=== PATIENT | female | born 1940 | race African-American/Black ===

== ENCOUNTER 2017-10-07 08:48 | Inpatient (IN) | payer OTHER ==
[2017-10-07] VITALS (8 sets, daily range): BP systolic 123–161; BP diastolic 60–98; PULSE 98–120; TEMP 98.6; Ht 170.2 cm; Wt 93.7 kg
[~2017-10-07] VITALS: Ht 170.2 cm; Wt 93.7 kg
[~2017-10-07 08:48] MED LIST: AMLO-147 PO; ASPI-650 PO; EPOE10006 IJ; FOLI-49 PO; HUM100IN2 SQ; LABE100T3 PO; METO10TA92 PO; NPH,100V10 SC; OLME20TA20 PO
[2017-10-07] MEDS ORDERED: IPRATROPIUM (NEB) 0.5 MG/2.5 ML AMP NEB STA (08:49)
[2017-10-07] MEDS ORDERED: ALBUTEROL 0.083% (NEB) 2.5 MG/3 ML AMP NEB STA (08:49)
[2017-10-07] MEDS ORDERED: ONDANSETRON 4 MG INJ IV STA ×2 (09:30→15:22)
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
[2017-10-07 10:07] LABS: BASOPHILS % 0.3 % (0.0-2.0); EOSINOPHILS # 0.2 10^3/ul (0.0-0.5); EOSINOPHILS % 2.1 % (0.0-7.0); HEMATOCRIT 35.2 % (37.0-47.0); HEMOGLOBIN 11.2 g/dl (12.0-16.0); LYMPHOCYTES # 0.8 10^3/ul (0.8-2.9); LYMPHOCYTES % 7.3 % (15.0-51.0); MEAN CORPUSCULAR HEMOGLOBIN 28.4 pg (29.0-33.0); MEAN CORPUSCULAR HGB CONC 31.8 g/dl (32.0-37.0); MEAN CORPUSCULAR VOLUME 89.1 fl (82.0-101.0); MEAN PLATELET VOLUME 10.3 fl (7.4-10.4); MONOCYTE # 0.8 10^3/ul (0.3-0.9); MONOCYTES % 7.3 % (0.0-11.0); NEUTROPHIL # 8.8 10^3/ul (1.6-7.5); NEUTROPHILS % 82.8 % (39.0-77.0); PLATELET COUNT 238 10^3/UL (140-415); RED BLOOD COUNT 3.95 10^6/ul (4.20-5.40); RED CELL DISTRIBUTION WIDTH 15.5 % (11.5-14.5); WHITE BLOOD COUNT 10.6 10^3/ul (4.8-10.8)
--- NOTE | 2017-10-07 10:23 | CONS ---
Date/Time of Note Date/Time of Note DATE: 10/07/17 TIME: 10:14 Assessment/Plan Assessment/Plan Chief Complaint/Hosp Course Complete heart block Renal failure on dialysis Hypertension Abnormal EKG History of valvular heart disease Recommendations: Electrodes are being checked stat. If potassium is elevated needs to be corrected immediately. Discussed with Dr. Porter already who stated the patient has missed her dialysis yesterday. If no reversible causes found. Patient would benefit from permanent pacemaker. 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 Discussed with him. He will take over the case from now on. I will sign off thank you Problems: Consultation Date/Type/Reason Admit Date/Time Date of Consultation: Oct 07, 2017 Type of Consultation: card Reason for Consultation CHB Referring Provider: JAMEEL FLEMING of Present Illness CC: N/A/ABD PAIN HPI: Thank you for his referral. History was informed the patient on discussion with patient physical education instructor Dr. Porter. And also finally from discussion with patient's metal shaping machine operator. This is a pleasant 77-year-old -[place] female with history of renal failure on dialysis who underwent coronary angiogram yesterday as noted hospital. Patient came today because of nausea vomiting abdominal pain. EKG was done in the emergency room which was shown to me because of a concerning EKG in the emergency room. EKG was personally reviewed which showed complete heart block and/A-V dissociation. Heart is also around 40s. She denies any syncope now but she has had syncope in the past. She does complain of feeling of weakness and shortness of breath. Because of wall EKG was kindly asked to evaluate see the patient emergently. Past medical history: Hypertension renal failure on dialysis. History of valvular disorder. Social history does not smoke or drink. Medication was reviewed. Allergies to benazepril and lozenges reportedly. Family history no early coronary artery disease. Exam/Review of Systems Vital Signs Vitals Vital Signs Date Time Temp Pulse Resp B/P Pulse Ox O2 Delivery O2 Flow Rate FiO2 10/07/17 08:56 48 16 96 21 10/07/17 08:54 97.9 161/69 Exam General: OBESE HEENT: NC/AT. pupils are equal. round. NECK: NO JVD. no stridor. CV:NEREYDA.. systolic murmur; no gallop or rubs. PULM: no wheezing or rhonchi. GI: SOFT, NT, ND, no rebound or guarding Extremity: B/L LE edema. no clubbing. neuro: awake and alert, OX3. Psych: calm and pleasant rectal: deferred ECG REVIEWED NSR complete heart block/A-V dissociation. Results Result Diagram: 10/07/1715 Results 24 hrs Laboratory Tests Test 10/07/17 09:15 White Blood Count 10.6 Red Blood Count 3.95 L Hemoglobin 11.2 L Hematocrit 35.2 L Mean Corpuscular Volume 89.1 Mean Corpuscular Hemoglobin 28.4 L Mean Corpuscular Hemoglobin Concent 31.8 L Red Cell Distribution Width 15.5 H Platelet Count 238 Mean Platelet Volume 10.3 Neutrophils % 82.8 H Lymphocytes % 7.3 L Monocytes % 7.3 Eosinophils % 2.1 Basophils % 0.3 Nucleated Red Blood Cells % 0.0 Neutrophils # 8.8 H Lymphocytes # 0.8 Monocytes # 0.8 Eosinophils # 0.2 Basophils # 0.0 Nucleated Red Blood Cells # 0.0 WING BARCENAS MD Oct 07, 2017 10:23
[2017-10-07] MEDS ORDERED: SEVE800T7 PO (10:27)
[2017-10-07] MEDS ORDERED: ATOR20TA38 PO (10:28)
--- NOTE | 2017-10-07 10:44 | RADRPT ---
PROCEDURE: Chest x-ray CLINICAL INDICATION: Asthma exacerbation TECHNIQUE: Chest single view COMPARISON: 03/09/2014 FINDINGS: There is interval removal of dialysis catheter. Stable mild cardiomegaly seen. There is increased bi lateral perihilar interstitial markings. This may represent mild interstitial edema versus interstit ial pneumonia. No confluent consolidation seen. Costophrenic angles are sharp. Bony thorax is unrema rkable. IMPRESSION: 1. Interval removal of dialysis catheter. 2. Increased bilateral perihilar interstitial markings. This may represent interstitial edema versu s interstitial pneumonia RPTAT: HH .Radhames Alejandre MD, MD Date Time Electronically viewed and signed by .Radhames Alejandre MD, MD on 10/07/2017 10:44 .W/
--- NOTE | 2017-10-07 10:47 | CONS ---
Date/Time of Note Date/Time of Note DATE: 10/07/17 TIME: 10:45 Assessment/Plan Assessment/Plan Chief Complaint/Hosp Course ESRD HTN ARRTHYMIA AVF S/P CATH PUL EDEMA PLAN HD Problems: Consultation Date/Type/Reason Admit Date/Time Initial Consult Date 10/07/17 Type of Consultation: renal Referring Provider: JAMEEL FLEMING 24 HR Interval Summary Constitutional: other (sob+) Exam/Review of Systems Vital Signs Vitals Vital Signs Date Time Temp Pulse Resp B/P Pulse Ox O2 Delivery O2 Flow Rate FiO2 10/07/17 08:56 48 16 96 21 10/07/17 08:54 97.9 161/69 Exam Constitutional: alert, oriented Head: normocephalic Eyes: EOMI, nl conjunctiva Neck: supple Respiratory: clear to auscultation Cardiovascular: regular rate and rhythm Gastrointestinal: bowel sounds (+), soft Extremities: edema (+) Neurological: DIRECTOR AMBULATORY II-XII intact, nl mental status, nl speech, nl strength Results Result Diagram: 10/07/17 0915 Results 24 hrs Laboratory Tests Test 10/07/17 09:15 White Blood Count 10.6 Red Blood Count 3.95 L Hemoglobin 11.2 L Hematocrit 35.2 L Mean Corpuscular Volume 89.1 Mean Corpuscular Hemoglobin 28.4 L Mean Corpuscular Hemoglobin Concent 31.8 L Red Cell Distribution Width 15.5 H Platelet Count 238 Mean Platelet Volume 10.3 Neutrophils % 82.8 H Lymphocytes % 7.3 L Monocytes % 7.3 Eosinophils % 2.1 Basophils % 0.3 Nucleated Red Blood Cells % 0.0 Neutrophils # 8.8 H Lymphocytes # 0.8 Monocytes # 0.8 Eosinophils # 0.2 Basophils # 0.0 Nucleated Red Blood Cells # 0.0 BOO MALONE MD Oct 07, 2017 10:47
[2017-10-07] MEDS ORDERED: ONDANSETRON 4 MG INJ IV PRN (12:30)
[2017-10-07 12:37] LABS: CALCIUM 9.7 mg/dl (8.4-10.2); CREATININE 7.52 mg/dl (0.44-1.00)
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
[2017-10-07 12:43] LABS: POTASSIUM 6.3 mmol/L (3.5-5.1)
[2017-10-07 12:49] LABS: TROPONIN-I 0.04 ng/ml (0.00-0.12)
[2017-10-07] MEDS ORDERED: GLUCOSE GEL 15 GRAM TUBE PO PRN ×2 (13:00)
[2017-10-07] MEDS ORDERED: GLUCOSE GEL 15 GRAM TUBE BUCCAL PRN (13:00)
[2017-10-07] MEDS ORDERED: GLUCAGON 1 MG INJ IM PRN (13:00)
[2017-10-07] MEDS ORDERED: DEXTROSE 50% 50 ML SYRINGE IV PRN ×2 (13:00)
--- NOTE | 2017-10-07 13:03 | CONS ---
Date/Time of Note Date/Time of Note DATE: 10/07/17 TIME: 12:57 Assessment/Plan Assessment/Plan Additional Assessment/Plan Chest x-ray was reviewed from today which is showing mild pulmonary vascular congestion. EKG showing complete heart block. However EKG rhythm strip currently is showing second-degree heart block. Assessment and recommendations; 1. Patient admitted with shortness of breath due to mild pulmonary vascular congestion as well as heart block which is likely on the basis of high potassium level. Patient having missed her hemodialysis session yesterday. 2. Currently no sign of any infective process. Patient to be dialyzed shortly. Cardiology consultation appreciated. If heart block persists post correction of hyperkalemia, patient will need to have a pacemaker placed. Consultation Date/Type/Reason Admit Date/Time Date of Consultation: Oct 07, 2017 Type of Consultation: Pulmonary Reason for Consultation Pulmonary consultation requested for evaluation of shortness of breath. History of presenting illness; patient is a pleasant 77-year-old lady who came into the emergency room with a few days history of shortness of breath , the patient apparently has missed hemodialysis yesterday. Upon further evaluation patient was found to be in complete heart block, stat serum chemistry was done which is showing hyperkalemia with potassium of 6.3. By the time I saw the patient in ER, the patient is feeling much better and according to her shortness of breath is now completely resolved. Patient denies any palpitation any syncope any chest pain, denies any fever or chills. Patient did have an episode of nausea earlier. Past medical history; 1. Patient with history of chronic renal failure on hemodialysis. 2. History of chronic anemia. 3. History of valvular heart disease. Medications; reviewed. Allergies; or to BAMBI inhibitor. Next Social history; patient is a very scant smoker. Most of alcohol or drug abuse. Family history; patient is single she has 6 children. Various family members have heart disease, diabetes in the family. Occupation history; noncontributory. Review systems; denies any headache, visual changes, sinus symptoms. Denies any seizures. Any chest pain. Shortness of breath has resolved. Denies any coughing, wheezing, sputum production. Denies any further nausea or vomiting. Denies any abdominal pain. Any melena or hematochezia. Denies any edema orthopnea. General exam; elderly woman, awake alert, currently in no distress. Social History Alcohol Use: none Smoking Status: Former smoker Drug Use: none Exam/Review of Systems Vital Signs Vitals Vital Signs Date Time Temp Pulse Resp B/P Pulse Ox O2 Delivery O2 Flow Rate FiO2 10/07/17 08:56 48 16 96 21 10/07/17 08:54 97.9 161/69 Exam HEENT exam; supple neck, positive JVD. No lymphadenopathy. Midline trachea. No thyromegaly. Patient upper jaw is edentulous. Has bilateral intraocular lens implants. No neck masses. Chest exam; clear to auscultation. S1-S2 audible, no murmurs. Regular rhythm. Abdomen exam; soft, nontender. No organomegaly. Bowel sounds audible. Extremity exam; no edema. Pulses 1+ bilaterally. REGIONAL TELECOMMUNICATIONS SPECIALIST exam; no focal deficit. Results Result Diagram: 10/07/1791410/07/1715 Results 24 hrs Laboratory Tests Test 10/07/17 09:15 10/07/17 11:36 White Blood Count 10.6 Red Blood Count 3.95 L Hemoglobin 11.2 L Hematocrit 35.2 L Mean Corpuscular Volume 89.1 Mean Corpuscular Hemoglobin 28.4 L Mean Corpuscular Hemoglobin Concent 31.8 L Red Cell Distribution Width 15.5 H Platelet Count 238 Mean Platelet Volume 10.3 Neutrophils % 82.8 H Lymphocytes % 7.3 L Monocytes % 7.3 Eosinophils % 2.1 Basophils % 0.3 Nucleated Red Blood Cells % 0.0 Neutrophils # 8.8 H Lymphocytes # 0.8 Monocytes # 0.8 Eosinophils # 0.2 Basophils # 0.0 Nucleated Red Blood Cells # 0.0 Sodium Level 139 Potassium Level 6.3 *H Chloride Level 101 Carbon Dioxide Level 23 Anion Gap 21 H Blood Urea Nitrogen 40 H Creatinine 7.52 H Glucose Level 124 Calcium Level 9.7 Troponin I 0.040 Magnesium Level 1.9 Digoxin Level < 0.4 L Medications Medications Current Medications Ondansetron HCl (Zofran Inj) 4 mg Q6H PRN IV NAUSEA AND/OR VOMITING; Start 10/07/17 at 12:30 Pantoprazole (Protonix Iv) 40 mg DAILY IV ; Start 10/08/17 at 09:00 Diagnostic Test (Pha) (Accu-Chek) 1 02 XX ; Start 10/08/17 at 02:00 Insulin Aspart NOVOLOG *MILD* ALGORI... Q4 SC ; Start 10/07/17 at 17:00 Dextrose/Sodium Chloride (D5-1/2ns) 1,000 ml @ 40 mls/hr Q24H IV ; Start at 16:00 Miscellaneous Information 1 ea NOTE XX ; Start 10/07/17 at 13:00 Glucose (Glutose) 15 gm Q15M PRN PO DECREASED GLUCOSE; Start 10/07/17 at 13:00 Glucose (Glutose) 22.5 gm Q15M PRN PO DECREASED GLUCOSE; Start 10/07/17 at 13: 00 Dextrose (D50w Syringe) 25 ml Q15M PRN IV DECREASED GLUCOSE; Start 10/07/17 at 13:00 Dextrose (D50w Syringe) 50 ml Q15M PRN IV DECREASED GLUCOSE; Start 10/07/17 at 13:00 Glucagon (Glucagen) 1 mg Q15M PRN IM DECREASED GLUCOSE; Start 10/07/17 at 13:00 Glucose (Glutose) 15 gm Q15M PRN BUCCAL DECREASED GLUCOSE; Start 10/07/17 at 13 :00 LIBERTY CRUZ Oct 07, 2017 13:03
--- NOTE | 2017-10-07 13:11 | RADRPT ---
Echocardiogram Report Patient Name: KAVEH VILLANUEVA Gender: Female Date: 1940 Study Date: 07-Oct-2017 Survey Research Teacher: Merle Gabriel RDCS Location: [facility] Ref. Physician: TODD PAGAN Quality: Adequate Procedures: Transthoracic echocardiogram with complete 2D, M-Mode, and doppler examination. Indications: heart block. 2D/M Mode Doppler Measurement Value Normal Ranges Measurement Value Normal Ranges LVIDd 2D 4.6 3.5 - 5.6 cm AMANDA Vmax 0.9 cm2 LVIDs 2D 1.7 2.1 - 4.1 cm AMANDA VTI 0.9 cm2 LVPWd 2D 1.0 0.6 - 1.1 cm AV Mean Oleksandr 2.9 m/sec IVSd 2D 1.1 0.6 - 1.1 cm AV Mean PG 42.5 mmHg AoR Diam 2D 2.1 2.0 - 3.7 cm AV Peak Oleksandr 4.8 m/sec EDV 2D 99.8 cm3 AV Peak PG 91.3 mmHg ESV 2D 4.6 cm3 AV VTI 96.9 cm LA Dimen 2D 3.1 2.3 - 4.0 cm LVOT Mean Oleksandr 1.1 m/sec LVOT Diam 1.9 cm LVOT Mean PG 5.4 mmHg LVOT Peak Oleksandr 1.4 m/sec LVOT Peak PG 8.0 mmHg LVOT VTI 36.8 cm TR Peak Oleksandr 3.2 m/sec TR Peak PG 41.9 mmHg RVSP 50.0 mmHg Findings Left Ventricle: Hyperdynamic left ventricular systolic function. Normal left ventricular cavity size. Mild concentric left ventricular hypertrophy. Ejection fraction is visually estimated at 70 %. Tissue Doppler/Mitral Doppler indices are indeterminate in this study due to the presence of heart block. Right Ventricle: Normal right ventricular size. Normal right ventricular systolic function. Left Atrium: The left atrium is normal in size. Right Atrium: The right atrium is normal in size. Mitral Valve: Mild mitral leaflet calcification. Mild mitral annular calcification. Mild mitral valve regurgitation. Aortic Valve: Severe aortic stenosis. Aortic valve Max velocity 4.78 m/sec. Max PG 91.30 mmHg. Mean PG 42.50 mmHg. Aortic valve area 0.80 cm2. Aortic cusps appear severely calcified. Trace aortic valve regurgitation. Tricuspid Valve: Normal appearance of the tricuspid valve. Right ventricular systolic pressure is consistent with moderate pulmonary hypertension. Estimated peak PA systolic pressure 44 mmHg. There is moderate tricuspid regurgitation. Pulmonic Valve: Pulmonic valve not well visualized. Pericardium: Normal pericardium with no significant pericardial effusion. Aorta: Normal aortic root. IVC: Normal size and normal respiratory collapse consistent with normal right atrial pressure. Conclusions Hyperdynamic left ventricular systolic function. Normal left ventricular cavity size. Mild concentric left ventricular hypertrophy. Ejection fraction is visually estimated at 70 %. Tissue Doppler/Mitral Doppler indices are indeterminate in this study due to the presence of heart block. Normal right ventricular size. Normal right ventricular systolic function. The left atrium is normal in size. Severe aortic stenosis. Aortic valve Max velocity 4.78 m/sec. Max PG 91.30 mmHg. Mean PG 42.50 mmHg. Aortic valve area 0.80 cm2. Aortic cusps appear severely calcified. Trace aortic valve regurgitation. Mild mitral leaflet calcification. Mild mitral annular calcification. Mild mitral valve regurgitation. Normal appearance of the tricuspid valve. Right ventricular systolic pressure is consistent with moderate pulmonary hypertension. Estimated peak PA systolic pressure 44 mmHg. There is moderate tricuspid regurgitation. Normal aortic root. Normal size and normal respiratory collapse consistent with normal right atrial pressure. No Vegetation, masses, or thrombi seen. Electronically Signed By: Damon Figueroa 07-Oct-2017 13:10:35 -0800 Patient Name: KAVEH VILLANUEVA Study Date: 07-Oct-2017 [id number]
--- NOTE | 2017-10-07 14:27 | CONS ---
Date/Time of Note Date/Time of Note DATE: 10/07/17 TIME: 13:02 Assessment/Plan Assessment/Plan Chief Complaint/Hosp Course Impression: Complete heart block: pt is on labetolol with hyperkalemia as well. will hold bb and dialyze patient. if remains in CHB may need PPM. - cont tele in ICU - pacer pads, atropine at bedside - if hypotension progression in symptoms can start dopamine as well, consider temp pacer - hold avn blockers, bp meds - keep npo at [place] Aortic stenosis- moderate on previous echo and cath yesterday. however severe gradient on todays study. possible related to bradycardia, and increased output. will need to reassess when normal rhythm restored CAD- non obstructive on cath yesterday. cont asa, statin. avoid bb at this time. ESRD on iHD- dialysis per dr. malone HTN- holding bp meds given CHB, will restart as needed or when normal rhythm restored. HLD- on statin d/w Dr. Malone. Problems: Consultation Date/Type/Reason Admit Date/Time 10/07/2017 Date of Consultation: Oct 07, 2017 Type of Consultation: Cardiology Reason for Consultation Heart Block Referring Provider: BOO MALONE MD Hx of Present Illness Ms. Shelton is a 77-year-old woman with asthma, history of end-stage renal disease on dialysis. Hypertension diabetes mellitus type 2 as well as aortic stenosis. Patient reported recently she had episode of syncope was seen in clinic and had left heart catheterization yesterday at [facility] as outpatient for evaluation of coronary disease and aortic stenosis. Briefly: Patient tolerated procedure well and was found to have normal right-sided left- sided pressures. At least moderate aortic stenosis, normal cardiac output/ index and moderate nonobstructive coronary disease iFR.was performed in the right coronary artery which was normal. Access was obtained in the right femoral artery and vein and hemostasis was seen and successfully. Patient states she went home and was resting but felt tired. Today she had increased fatigue with shortness of breath and nausea. She was taken to [facility] where she was found to have complete heart block with heart rate in the 40s with stable blood pressure. Laboratory studies showed hyperkalemia 6.3 without significant troponin elevation. She did have mild dizziness with walking but no syncope. No lightheadedness at rest. No PND orthopnea edema. Constitutional: No chills, No diaphoresis, No disoriented, No febrile, No improved, No no complaints, No other, No poor po, No requiring IVF, No requiring O2 Eyes: No discharge, No no complaints, No other, No pain, No redness, No visual change ENT: No bleeding, No congestion, No discharge, No dysphagia, No no complaints, No other, No pain, No sore throat Respiratory: shortness of breath Cardiovascular: no complaints Gastrointestinal: nausea Genitourinary: No bleeding, No discharge, No dysuria, No flank pain, No hematuria, No no complaints, No other Musculoskeletal: No back pain, No bone/joint pain, No neck pain, No no complaints, No other, No restricted range of motion, No swelling Skin: No bruising, No erythema, No laceration, No no complaints, No other, No pruritis, No rash, No skin lesions Neurologic: dizziness, No confusion, No focal-weakness, No headache, No no complaints, No other, No seizure, No syncope Immunologic: No immunodeficiency, No no complaints, No other, No pruritis, No rhinitis, No urticaria Past Medical History Active Problems Aortic stenosis (424.1) (I35.0) Carotid artery stenosis (433.10) (I65.29) Diabetes mellitus, type 2 (250.00) (E11.9) ESRD on dialysis (585.6,V45.11) (N18.6,Z99.2) Coronary Artery Disease Syncope Surgical History History of Cataract Surgery History of Hemodialysis Access Type Arteriovenous Fistula History of Hysterectomy Social History Former smoker (V15.82) (Z87.891) Lifestyle and Disease Management: Smoking: She does not use tobacco. Alcohol: She consumes alcohol. social. Drug Use: She denies drug use. Family History No pertinent family history Exam/Review of Systems Vital Signs Vitals Vital Signs Date Time Temp Pulse Resp B/P Pulse Ox O2 Delivery O2 Flow Rate FiO2 10/07/17 08:56 48 16 96 21 10/07/17 08:54 97.9 161/69 Exam Constitutional: alert, oriented Psych: nl mood/affect, no complaints Head: atraumatic, normocephalic ENMT: nl external ears & nose, nl lips & teeth Neck: non-tender, supple, No jvd Respiratory: clear to auscultation, normal air movement, No congested cough, No crackles/rales Cardiovascular: other (katherine, regualr, nl s1s2 iii/vi edmundo rusb) Gastrointestinal: non-tender, soft Genitourinary - Female: other (R groin with dressing, cd/i. no hematoma/bruit) Extremities: normal pulses, No calf tenderness, No clubbing, No cyanosis, No edema Neurological: BUTTON SPINDLER II-XII intact, nl speech Skin: nl turgor Lymph: nl lymph nodes Results Result Diagram: 10/07/1715 10/07/1715 Results 24 hrs Laboratory Tests Test 10/07/17 09:15 10/07/17 11:36 White Blood Count 10.6 Red Blood Count 3.95 L Hemoglobin 11.2 L Hematocrit 35.2 L Mean Corpuscular Volume 89.1 Mean Corpuscular Hemoglobin 28.4 L Mean Corpuscular Hemoglobin Concent 31.8 L Red Cell Distribution Width 15.5 H Platelet Count 238 Mean Platelet Volume 10.3 Neutrophils % 82.8 H Lymphocytes % 7.3 L Monocytes % 7.3 Eosinophils % 2.1 Basophils % 0.3 Nucleated Red Blood Cells % 0.0 Neutrophils # 8.8 H Lymphocytes # 0.8 Monocytes # 0.8 Eosinophils # 0.2 Basophils # 0.0 Nucleated Red Blood Cells # 0.0 Sodium Level 139 Potassium Level 6.3 *H Chloride Level 101 Carbon Dioxide Level 23 Anion Gap 21 H Blood Urea Nitrogen 40 H Creatinine 7.52 H Glucose Level 124 Calcium Level 9.7 Troponin I 0.040 Magnesium Level 1.9 Digoxin Level < 0.4 L Medications Medications Current Medications Ondansetron HCl (Zofran Inj) 4 mg Q6H PRN IV NAUSEA AND/OR VOMITING; Start 10/07/17 at 12:30 Pantoprazole (Protonix Iv) 40 mg DAILY IV ; Start 10/08/17 at 09:00 Diagnostic Test (Pha) (Accu-Chek) 1 ea 02 XX ; Start 10/08/17 at 02:00 Insulin Aspart NOVOLOG *MILD* ALGORI... Q4 SC ; Start 10/07/17 at 17:00 Dextrose/Sodium Chloride (D5-1/2ns) 1,000 ml @ 40 mls/hr Q24H IV ; Start at 16:00 Miscellaneous Information 1 ea NOTE XX ; Start 10/07/17 at 13:00 Glucose (Glutose) 15 gm Q15M PRN PO DECREASED GLUCOSE; Start 10/07/17 at 13:00 Glucose (Glutose) 22.5 gm Q15M PRN PO DECREASED GLUCOSE; Start 10/07/17 at 13: 00 Dextrose (D50w Syringe) 25 ml Q15M PRN IV DECREASED GLUCOSE; Start 10/07/17 at 13:00 Dextrose (D50w Syringe) 50 ml Q15M PRN IV DECREASED GLUCOSE; Start 10/07/17 at 13:00 Glucagon (Glucagen) 1 mg Q15M PRN IM DECREASED GLUCOSE; Start 10/07/17 at 13:00 Glucose (Glutose) 15 gm Q15M PRN BUCCAL DECREASED GLUCOSE; Start 10/07/17 at 13 :00 Procedures Procedures cxr report reviewed in emr EKrd degree heart block, with escape rhythm CRISTIAN COTTON Oct 07, 2017 13:12
[2017-10-07] MEDS ORDERED: NA BICARBONATE 8.4% 50 ML SYG IV STA (14:34)
[2017-10-07] MEDS ORDERED: NA POLYST SULFON 15 GM/60 ML BTL PO STA (14:34)
[2017-10-07] MEDS ORDERED: CALCIUM GLUCONATE 10% 1 GM in SOD CHLORIDE 0.9% 100 ML IVPB ONE (15:00)
[2017-10-07] MEDS ORDERED: morphine 4 MG/ML VIAL IV STA (15:22)
--- NOTE | 2017-10-07 16:57 | QN ---
Documentation Comment [id number] GARCIA MD Oct 07, 2017 16:57
[2017-10-07] MEDS: INSULIN ASPART [NOVOLOG] 3 ML PEN SC SCH ×2 (17:00→21:00)
[2017-10-07] MEDS ORDERED: NA POLYST SULFON 15 GM/60 ML BTL PO ONE (17:00)
[2017-10-07] MEDS ORDERED: INSULIN ASPART [NOVOLOG] 3 ML PEN SC SCH (18:00)
[2017-10-07] MEDS ORDERED: ACETAMINOPHEN 325 MG TAB PO ONE (18:30)
--- NOTE | 2017-10-07 20:01 | CONS ---
DATE OF ADMISSION: 10/07/2017 DATE OF CONSULTATION: NEPHROLOGY CONSULTATION Thank you, Dr. Damon Figueroa and Dr. Pedro Montejo for kindly asking me to see this patient in consultation. HISTORY OF PRESENT ILLNESS: Patient, Brenda Shelton, is a 77-year-old female well known to me with a history of ESRD and hypertension. The patient has a history of AV fistula in the left upper extremity, history of anemia, history of epistaxis, history of rhinoplasty. The patient has history of AV malformation. Presented with short of breath, noted to have sodium 139, potassium 6.3, BUN 40, creatinine 7.52. Patient's digoxin is 0.4, hematocrit 35.2. The patient had a chest x-ray done in the ER, shows increased bilateral perihilar and interstitial markings, may represent interstitial edema. The patient is going to be admitted for further management. Patient recently had coronary angiogram done at [facility]. As per patient, no intervention was done. PAST MEDICAL HISTORY: As mentioned, diabetes mellitus, hypertension, ESRD, anemia, history of epistaxis, status post angiogram. ALLERGY HISTORY: , BENAZEPRIL. SOCIAL HISTORY: Negative. FAMILY HISTORY: Negative. MEDICATIONS 1. Amlodipine. 2. Aspirin. 3. Lipitor. 4. Epogen. 5. Folic acid. 6. Insulin. 7. Labetalol. 8. Reglan. 9. Benicar. 10. Renvela. REVIEW OF SYSTEMS: HEENT: Unremarkable. RESPIRATORY: Short of breath. Lung congestion. CARDIOVASCULAR: No chest pain or palpitations. ABDOMEN: ____ has some nausea, otherwise unremarkable. No hematemesis, melena. EXTREMITIES: Unremarkable with on and off lower extremity edema. CENTRAL NERVOUS SYSTEM: Unremarkable. PHYSICAL EXAMINATION: GENERAL: The patient is an overweight female, awake, alert. VITAL SIGNS: Pulse of 48, blood pressure 116/59. HEENT: Head is atraumatic, normocephalic. Pupils are equal, reactive to light. No pallor_ conjunctivae or icterus. NECK: Supple. LUNGS: Basilar rales noted. CARDIOVASCULAR: S1, S2 normal. ABDOMEN: Soft, nontender. Bowel sounds positive. No palpable mass or hepatosplenomegaly. EXTREMITIES: No cyanosis, clubbing. Edema positive. CENTRAL NERVOUS SYSTEM: The patient is awake, alert, moving both upper and lower extremities. LABORATORY DATA: As mentioned above. IMPRESSION: 1. Patient has hyperkalemia. 2. Cardiac arrhythmia with possible third-degree heart block per cardiology. 3. End-stage renal disease. 4. Patient has clinical pulmonary edema. 5. Hypertension. 6. Status post coronary angiogram 2 days ago. 7. Diabetes mellitus. 8. Obesity. 9. History of epistaxis. 10. History of dyslipidemia. PLAN: Continue to give this patient renal diet. Hemodialysis will be ordered. In the ER, the patient received dextrose solution. The patient will also be receiving Kayexalate. Other recommendations per cardiology on the case. Thank you doctors for kindly asking me to see this patient in nephrology consultation. Dictated By: BOO MALONE MD BS/NTS Conf#: [id number] DID#: [id number] CC: PEDRO MONTEJO MD; DAMON FIGUEROA MD;*EndCC* MTDD
[2017-10-08] VITALS (17 sets, daily range): BP systolic 123–161; BP diastolic 51–89; PULSE 86–101; RESP 18–23
[2017-10-08] MEDS: DEXTROSE 5%-0.45% NACL 1,000 ML IV SCH ×2 (00:46→16:13)
[2017-10-08] MEDS: INSULIN ASPART [NOVOLOG] 3 ML PEN SC SCH ×4 (01:00→17:25)
[2017-10-08] MEDS: ACETAMINOPHEN 325 MG TAB PO PRN ×3 (01:11→12:23)
[2017-10-08] MEDS: ACCU-CHEK XX SCH (02:00)
[2017-10-08 05:44] LABS: BASOPHILS % 0.3 % (0.0-2.0); EOSINOPHILS # 0.2 10^3/ul (0.0-0.5); EOSINOPHILS % 2.3 % (0.0-7.0); HEMATOCRIT 33.6 % (37.0-47.0); HEMOGLOBIN 10.6 g/dl (12.0-16.0); LYMPHOCYTES # 0.9 10^3/ul (0.8-2.9); LYMPHOCYTES % 9.7 % (15.0-51.0); MEAN CORPUSCULAR HEMOGLOBIN 27.4 pg (29.0-33.0); MEAN CORPUSCULAR HGB CONC 31.5 g/dl (32.0-37.0); MEAN CORPUSCULAR VOLUME 86.8 fl (82.0-101.0); MEAN PLATELET VOLUME 10.3 fl (7.4-10.4); MONOCYTE # 1.2 10^3/ul (0.3-0.9); MONOCYTES % 12.5 % (0.0-11.0); NEUTROPHILS % 74.8 % (39.0-77.0); PLATELET COUNT 221 10^3/UL (140-415); RED BLOOD COUNT 3.87 10^6/ul (4.20-5.40); RED CELL DISTRIBUTION WIDTH 15.1 % (11.5-14.5); WHITE BLOOD COUNT 9.4 10^3/ul (4.8-10.8)
[2017-10-08 05:58] LABS: ALBUMIN 4.2 g/dl (3.3-4.9); ALBUMIN/GLOBULIN RATIO 0.91; BILIRUBIN,INDIRECT 0.4 mg/dl (0-1.1); BILIRUBIN,TOTAL 0.4 mg/dl (0.2-1.3); CALCIUM 9.7 mg/dl (8.4-10.2); CREATININE 6.37 mg/dl (0.44-1.00); POTASSIUM 4.1 mmol/L (3.5-5.1); TOTAL PROTEIN 8.8 g/dl (6.1-8.1)
[2017-10-08 07:19] LABS: CHOL/HDL RATIO 2.1 RATIO
--- NOTE | 2017-10-08 07:55 | CONS ---
Date/Time of Note Date/Time of Note DATE: 10/08/17 TIME: 07:51 Assessment/Plan Assessment/Plan Chief Complaint/Hosp Course Impression: Complete heart block: 2/2 hyperkalemia vs. beta ocrby. resolved now sinus agie3ce degree avb. hold off on ppm, cont tele monitoring for recurrent block - ok to transfer from ICU to telemetry floor - pacer pads, atropine at bedside - hold avn blockers, bp meds - advance diet - pt/ot eval. Aortic stenosis- moderate on previous echo and cath. . however severe gradient on yesterday study. possible related to bradycardia, and increased output. will cont to monitor, reassess as outpt. CAD- non obstructive on cath yesterday. cont asa, statin. avoid bb at this time. ESRD on iHD- dialysis per dr. malone HTN- ok to restart meds except hold bb HLD- on statin d/w Dr. Malone. Problems: Consultation Date/Type/Reason Admit Date/Time Oct 07, 2017 at 12:22 Initial Consult Date 10/07/17 Type of Consultation: Cardiology Referring Provider: BOO MALONE MD 24 HR Interval Summary Free Text/Dictation no acute events. pt transferred to ICU around [place], was in sinus with 1st degree avb. pt states feels well no n/v, tolerated small amount of po yesterday. had iHD yesterday as well, K improved this am. no cp/palp/dizziness. Constitutional: improved Detailed Summary ENT: no complaints Respiratory: no complaints Cardiovascular: no complaints Exam/Review of Systems Vital Signs Vitals Vital Signs Date Time Temp Pulse Resp B/P Pulse Ox O2 Delivery O2 Flow Rate FiO2 10/08/17 04:43 98.4 10/08/17 04:00 96 20 123/51 97 Room Air 10/07/17 21:00 2.0 10/07/17 08:56 21 Intake and Output 10/07/17 10/07/17 10/08/17 15:00 23:00 07:00 Intake Total 500 ml 60 ml Output Total 6500 ml Balance -6000 ml 60 ml Exam Constitutional: alert, oriented Psych: nl mood/affect, no complaints Head: atraumatic, normocephalic ENMT: nl external ears & nose, nl lips & teeth Neck: non-tender, supple, No jvd Respiratory: clear to auscultation, normal air movement, No congested cough, No crackles/rales Cardiovascular: other (RRR, nl s1s2 iiii/vi edmundo rusb) Gastrointestinal: non-tender, soft Genitourinary - Female: other (R groin with dressing, cd/i. no hematoma/bruit) Extremities: normal pulses, No calf tenderness, No clubbing, No cyanosis, No edema Neurological: INTERNAL SPECIALIST II-XII intact, nl speech Skin: nl turgor Lymph: nl lymph nodes Results Result Diagram: 10/08/1744010/08/17440 Results 24 hrs Laboratory Tests Test 10/07/17 09:15 10/07/17 11:36 10/08/17 04:40 10/08/17 04:41 White Blood Count 10.6 9.4 Red Blood Count 3.95 L 3.87 L Hemoglobin 11.2 L 10.6 L Hematocrit 35.2 L 33.6 L Mean Corpuscular Volume 89.1 86.8 Mean Corpuscular Hemoglobin 28.4 L 27.4 L Mean Corpuscular Hemoglobin Concent 31.8 L 31.5 L Red Cell Distribution Width 15.5 H 15.1 H Platelet Count 238 221 Mean Platelet Volume 10.3 10.3 Neutrophils % 82.8 H 74.8 Lymphocytes % 7.3 L 9.7 L Monocytes % 7.3 12.5 H Eosinophils % 2.1 2.3 Basophils % 0.3 0.3 Nucleated Red Blood Cells % 0.0 0.0 Neutrophils # 8.8 H 7.0 Lymphocytes # 0.8 0.9 Monocytes # 0.8 1.2 H Eosinophils # 0.2 0.2 Basophils # 0.0 0.0 Nucleated Red Blood Cells # 0.0 0.0 Sodium Level 139 138 Potassium Level 6.3 *H 4.1 # Chloride Level 101 97 Carbon Dioxide Level 23 29 Anion Gap 21 H 16 Blood Urea Nitrogen 40 H 29 #H Creatinine 7.52 H 6.37 H Glucose Level 124 96 Calcium Level 9.7 9.7 Troponin I 0.040 Magnesium Level 1.9 Digoxin Level < 0.4 L Bedside Glucose 91 Triglycerides Level 98 Cholesterol Level 134 LDL Cholesterol, Calculated 51 HDL Cholesterol 63 Cholesterol/HDL Ratio 2.1 Total Bilirubin 0.4 Direct Bilirubin 0.00 Indirect Bilirubin 0.4 Aspartate Amino Transf (AST/SGOT) 24 Alanine Aminotransferase (ALT/SGPT) 27 Alkaline Phosphatase 151 H Total Protein 8.8 H Albumin 4.2 Globulin 4.60 H Albumin/Globulin Ratio 0.91 Thyroid Stimulating Hormone (TSH) 2.590 Medications Medications Current Medications Ondansetron HCl (Zofran Inj) 4 mg Q6H PRN IV NAUSEA AND/OR VOMITING; Start 10/07/17 at 12:30 Pantoprazole (Protonix Iv) 40 mg DAILY IV ; Start 10/08/17 at 09:00 Diagnostic Test (Pha) (Accu-Chek) 1 ea 02 XX ; Start 10/08/17 at 02:00 Insulin Aspart NOVOLOG *MILD* ALGORI... Q4 SC ; Start 10/07/17 at 17:00 Dextrose/Sodium Chloride (D5-1/2ns) 1,000 ml @ 40 mls/hr Q24H IV Last administered on 10/08/17 00:46; Admin Dose 40 MLS/HR; Start 10/07/17 at 16:00 Miscellaneous Information 1 ea NOTE XX ; Start 10/07/17 at 13:00 Glucose (Glutose) 15 gm Q15M PRN PO DECREASED GLUCOSE; Start 10/07/17 at 13:00 Glucose (Glutose) 22.5 gm Q15M PRN PO DECREASED GLUCOSE; Start 10/07/17 at 13: 00 Dextrose (D50w Syringe) 25 ml Q15M PRN IV DECREASED GLUCOSE; Start 10/07/17 at 13:00 Dextrose (D50w Syringe) 50 ml Q15M PRN IV DECREASED GLUCOSE; Start 10/07/17 at 13:00 Glucagon (Glucagen) 1 mg Q15M PRN IM DECREASED GLUCOSE; Start 10/07/17 at 13:00 Glucose (Glutose) 15 gm Q15M PRN BUCCAL DECREASED GLUCOSE; Start 10/07/17 at 13 :00 Acetaminophen (Tylenol Tab) 650 mg Q6H PRN PO PAIN AND OR ELEVATED TEMP Last administered on 10/08/17 07:03; Admin Dose 650 MG; Start 10/08/17 at 01:30 Procedures Procedures cxr report reviewed in emr, tele reviewed: 1st degree avb hrs 90s, no events. no further CHB CRISTIAN COTTON Oct 08, 2017 07:55
[2017-10-08] MEDS ORDERED: PANTOPRAZOLE 40 MG INJ IV SCH (09:00)
[2017-10-08] MEDS: HYDROCODONE/APAP (5/325) TAB PO PRN ×2 (09:38→17:38)
--- NOTE | 2017-10-08 11:57 | CONS ---
Date/Time of Note Date/Time of Note DATE: 10/08/17 TIME: 11:56 Consult Date/Type/Reason Admit Date/Time Oct 07, 2017 at 12:22 Initial Consult Date 10/07/17 Type of Consultation: Pulmonary Ordering Provider: BOO MALONE MD Subjective Patient is comfortable this morning. No acute distress Objective Vital Signs Date Time Temp Pulse Resp B/P Pulse Ox O2 Delivery O2 Flow Rate FiO2 10/08/17 11:45 86 19 129/54 98 Room Air 10/08/17 08:00 98.5 10/07/17 21:00 2.0 10/07/17 08:56 21 Intake and Output 10/07/17 10/07/17 10/08/17 14:59 22:59 06:59 Intake Total 500 ml 60 ml Output Total 6500 ml Balance -6000 ml 60 ml Exam GENERAL: Elderly appearing lady comfortable at rest. VITAL SIGNS: per chart NECK: Supple. No JVD or lymphadenopathy. CARDIAC EXAM: S1, S2. No added sounds or murmurs. CHEST: clear bilaterally, No added sounds, rales or wheezes ABDOMEN: Soft, nontender. No guarding or rebound. EXTREMITIES: No cyanosis, clubbing edema +3 NEUROLOGIC: Generalized weakness. No focal deficits. Results/Medications Result Diagram: 10/08/17 0441 10/08/17 0441 Results 24 hrs Laboratory Tests Test 10/08/17 04:40 10/08/17 04:41 10/08/17 09:01 Bedside Glucose 91 101 Triglycerides Level 98 Cholesterol Level 134 LDL Cholesterol, Calculated 51 HDL Cholesterol 63 Cholesterol/HDL Ratio 2.1 White Blood Count 9.4 Red Blood Count 3.87 L Hemoglobin 10.6 L Hematocrit 33.6 L Mean Corpuscular Volume 86.8 Mean Corpuscular Hemoglobin 27.4 L Mean Corpuscular Hemoglobin Concent 31.5 L Red Cell Distribution Width 15.1 H Platelet Count 221 Mean Platelet Volume 10.3 Neutrophils % 74.8 Lymphocytes % 9.7 L Monocytes % 12.5 H Eosinophils % 2.3 Basophils % 0.3 Nucleated Red Blood Cells % 0.0 Neutrophils # 7.0 Lymphocytes # 0.9 Monocytes # 1.2 H Eosinophils # 0.2 Basophils # 0.0 Nucleated Red Blood Cells # 0.0 Sodium Level 138 Potassium Level 4.1 # Chloride Level 97 Carbon Dioxide Level 29 Anion Gap 16 Blood Urea Nitrogen 29 #H Creatinine 6.37 H Glucose Level 96 Hemoglobin A1c 5.5 Calcium Level 9.7 Total Bilirubin 0.4 Direct Bilirubin 0.00 Indirect Bilirubin 0.4 Aspartate Amino Transf (AST/SGOT) 24 Alanine Aminotransferase (ALT/SGPT) 27 Alkaline Phosphatase 151 H Total Protein 8.8 H Albumin 4.2 Globulin 4.60 H Albumin/Globulin Ratio 0.91 Thyroid Stimulating Hormone (TSH) 2.590 Medications Current Medications Ondansetron HCl (Zofran Inj) 4 mg Q6H PRN IV NAUSEA AND/OR VOMITING; Start 10/07/17 at 12:30 Pantoprazole (Protonix Iv) 40 mg DAILY IV Last administered on 10/08/17 09:00 ; Admin Dose 40 MG; Start 10/08/17 at 09:00 Diagnostic Test (Pha) (Accu-Chek) 1 ea 02 XX ; Start 10/08/17 at 02:00 Insulin Aspart NOVOLOG *MILD* ALGORI... Q4 SC ; Start 10/07/17 at 17:00 Dextrose/Sodium Chloride (D5-1/2ns) 1,000 ml @ 40 mls/hr Q24H IV Last administered on 10/08/17 00:46; Admin Dose 40 MLS/HR; Start 10/07/17 at 16:00 Miscellaneous Information 1 ea NOTE XX ; Start 10/07/17 at 13:00 Glucose (Glutose) 15 gm Q15M PRN PO DECREASED GLUCOSE; Start 10/07/17 at 13:00 Glucose (Glutose) 22.5 gm Q15M PRN PO DECREASED GLUCOSE; Start 10/07/17 at 13: 00 Dextrose (D50w Syringe) 25 ml Q15M PRN IV DECREASED GLUCOSE; Start 10/07/17 at 13:00 Dextrose (D50w Syringe) 50 ml Q15M PRN IV DECREASED GLUCOSE; Start 10/07/17 at 13:00 Glucagon (Glucagen) 1 mg Q15M PRN IM DECREASED GLUCOSE; Start 10/07/17 at 13:00 Glucose (Glutose) 15 gm Q15M PRN BUCCAL DECREASED GLUCOSE; Start 10/07/17 at 13 :00 Acetaminophen (Tylenol Tab) 650 mg Q6H PRN PO PAIN AND OR ELEVATED TEMP Last administered on 10/08/17 07:03; Admin Dose 650 MG; Start 10/08/17 at 01:30 Acetaminophen/ Hydrocodone Bitart ([place] (5/325)) 1 tab Q6H PRN PO HEADACHE Last administered on 10/08/17 09:38; Admin Dose 1 TAB; Start 10/08/17 at 09:30 Assessment/Plan Chief Complaint/Hosp Course Assessment 1. Complete heart block 2. End-stage renal failure on hemodialysis 3. History of essential hypertension 4. Transient hypoxemia secondary to pulmonary edema Plan 1. Continue cardiac recommendations possible pacemaker placement 2. Continue hemodialysis with volume removal 3. Continue supplemental O2 as needed Problems: RROY WEAVER MD, [facility] Oct 08, 2017 11:57
--- NOTE | 2017-10-08 16:24 | PN ---
Date/Time of Note Date/Time of Note DATE: 10/08/17 TIME: 16:16 Assessment/Plan VTE Prophylaxis VTE Prophylaxis Intervention: SCD's Lines/Catheters IV [facility] Peripheral IV Urinary Cath still in place: No Assessment/Plan Chief Complaint/Hosp Course Patient denies any chest pain denies any shortness of breath, patient is currently in sinus rhythm with first-degree AV block. Problems: Assessment/Plan - S/p complete heart block, Dr. Sherman is following in cardiology consultation, patient is currently in sinus rhythm with first-degree AV block. Continue telemetry monitoring. - End-stage renal failure on hemodialysis, Dr. Porter is following in nephrology consultation - Essential hypertension - Transient hypoxemia secondary to pulmonary edema, Dr. Gandara is following in pulmonology consultation. - Status post recent angiogram at Dr. Berrios's office. Monitor right femoral side site. Further recommendations based on clinical course. Plan of care discussed with Dr. Jay. Exam/Review of Systems Vital Signs Vitals Vital Signs Date Time Temp Pulse Resp B/P Pulse Ox O2 Delivery O2 Flow Rate FiO2 10/08/17 15:39 98.0 100 18 152/89 98 10/08/17 11:45 Room Air 10/07/17 21:00 2.0 10/07/17 08:56 21 Intake and Output 10/07/17 10/07/17 10/08/17 15:00 23:00 07:00 Intake Total 500 ml 70 ml Output Total 6500 ml 0 ml Balance -6000 ml 70 ml Exam Constitutional: alert Head: normocephalic Neck: supple Respiratory: normal air movement Cardiovascular: nl pulses, regular rate and rhythm, systolic murmur Gastrointestinal: non-tender, soft Extremities: edema, normal pulses, other (Left upper extremity AV fistula) Neurological: nl mental status Results Result Diagram: 10/08/1744010/08/17440 Results 24 hrs Laboratory Tests Test 10/08/17 04:40 10/08/17 04:41 10/08/17 09:01 10/08/17 12:29 Bedside Glucose 91 101 89 Triglycerides Level 98 Cholesterol Level 134 LDL Cholesterol, Calculated 51 HDL Cholesterol 63 Cholesterol/HDL Ratio 2.1 White Blood Count 9.4 Red Blood Count 3.87 L Hemoglobin 10.6 L Hematocrit 33.6 L Mean Corpuscular Volume 86.8 Mean Corpuscular Hemoglobin 27.4 L Mean Corpuscular Hemoglobin Concent 31.5 L Red Cell Distribution Width 15.1 H Platelet Count 221 Mean Platelet Volume 10.3 Neutrophils % 74.8 Lymphocytes % 9.7 L Monocytes % 12.5 H Eosinophils % 2.3 Basophils % 0.3 Nucleated Red Blood Cells % 0.0 Neutrophils # 7.0 Lymphocytes # 0.9 Monocytes # 1.2 H Eosinophils # 0.2 Basophils # 0.0 Nucleated Red Blood Cells # 0.0 Sodium Level 138 Potassium Level 4.1 # Chloride Level 97 Carbon Dioxide Level 29 Anion Gap 16 Blood Urea Nitrogen 29 #H Creatinine 6.37 H Glucose Level 96 Hemoglobin A1c 5.5 Calcium Level 9.7 Total Bilirubin 0.4 Direct Bilirubin 0.00 Indirect Bilirubin 0.4 Aspartate Amino Transf (AST/SGOT) 24 Alanine Aminotransferase (ALT/SGPT) 27 Alkaline Phosphatase 151 H Total Protein 8.8 H Albumin 4.2 Globulin 4.60 H Albumin/Globulin Ratio 0.91 Thyroid Stimulating Hormone (TSH) 2.590 Medications Medications Current Medications Ondansetron HCl (Zofran Inj) 4 mg Q6H PRN IV NAUSEA AND/OR VOMITING; Start 10/07/17 at 12:30 Diagnostic Test (Pha) 1 ea 1 ea 02 XX ; Start 10/08/17 at 02:00 Dextrose/Sodium Chloride (D5-1/2ns) 1,000 ml @ 40 mls/hr Q24H IV Last administered on 10/08/17t 16:13; Admin Dose 40 MLS/HR; Start 10/07/17 at 16:00 Miscellaneous Information 1 ea NOTE XX ; Start 10/07/17 at 13:00 Glucose (Glutose) 15 gm Q15M PRN PO DECREASED GLUCOSE; Start 10/07/17 at 13:00 Glucose (Glutose) 22.5 gm Q15M PRN PO DECREASED GLUCOSE; Start 10/07/17 at 13: 00 Dextrose (D50w Syringe) 25 ml Q15M PRN IV DECREASED GLUCOSE; Start 10/07/17 at 13:00 Dextrose (D50w Syringe) 50 ml Q15M PRN IV DECREASED GLUCOSE; Start 10/07/17 at 13:00 Glucagon (Glucagen) 1 mg Q15M PRN IM DECREASED GLUCOSE; Start 10/07/17 at 13:00 Glucose (Glutose) 15 gm Q15M PRN BUCCAL DECREASED GLUCOSE; Start 10/07/17 at 13 :00 Acetaminophen (Tylenol Tab) 650 mg Q6H PRN PO PAIN AND OR ELEVATED TEMP Last administered on 10/08/17 12:23; Admin Dose 650 MG; Start 10/08/17 at 01:30 Acetaminophen/ Hydrocodone Bitart ([place] (5/325)) 1 tab Q6H PRN PO HEADACHE Last administered on 10/08/17 09:38; Admin Dose 1 TAB; Start 10/08/17 at 09:30 Pantoprazole (Protonix Tab) 40 mg DAILY@06 PO ; Start 10/09/17 at 06:00 KHALIF RBOERTO Oct 08, 2017 16:24
--- NOTE | 2017-10-08 16:27 | CONS ---
Date/Time of Note Date/Time of Note DATE: 10/08/17 TIME: 16:26 Assessment/Plan Assessment/Plan Chief Complaint/Hosp Course 1. ESRD 2. Cardiac arrhythmia with possible third-degree heart block per cardiology. 3. Anemia 4. Patient has clinical pulmonary edema. 5. Hypertension. 6. Status post coronary angiogram 2 days ago. 7. Diabetes mellitus. 8. Obesity. 9. History of epistaxis. 10. History of dyslipidemia. Problems: Additional Assessment/Plan 1. continue HD 2. d/c IV fluids Consultation Date/Type/Reason Admit Date/Time Oct 07, 2017 at 12:22 Initial Consult Date 10/07/17 Type of Consultation: nephrology Reason for Consultation Dr Malone Referring Provider: BOO MALONE MD 24 HR Interval Summary Constitutional: no complaints Exam/Review of Systems Vital Signs Vitals Vital Signs Date Time Temp Pulse Resp B/P Pulse Ox O2 Delivery O2 Flow Rate FiO2 10/08/17 16:15 94 10/08/17 15:39 98.0 18 152/89 98 10/08/17 11:45 Room Air 10/07/17 21:00 2.0 10/07/17 08:56 21 Intake and Output 10/07/17 10/07/17 10/08/17 15:00 23:00 07:00 Intake Total 500 ml 70 ml Output Total 6500 ml 0 ml Balance -6000 ml 70 ml Exam Constitutional: alert, oriented ENMT: nl external ears & nose Neck: supple Respiratory: clear to auscultation Cardiovascular: regular rate and rhythm Results Result Diagram: 10/08/1744010/08/17 0441 Results 24 hrs Laboratory Tests Test 10/08/17 04:40 10/08/17 04:41 10/08/17 09:01 10/08/17 12:29 Bedside Glucose 91 101 89 Triglycerides Level 98 Cholesterol Level 134 LDL Cholesterol, Calculated 51 HDL Cholesterol 63 Cholesterol/HDL Ratio 2.1 White Blood Count 9.4 Red Blood Count 3.87 L Hemoglobin 10.6 L Hematocrit 33.6 L Mean Corpuscular Volume 86.8 Mean Corpuscular Hemoglobin 27.4 L Mean Corpuscular Hemoglobin Concent 31.5 L Red Cell Distribution Width 15.1 H Platelet Count 221 Mean Platelet Volume 10.3 Neutrophils % 74.8 Lymphocytes % 9.7 L Monocytes % 12.5 H Eosinophils % 2.3 Basophils % 0.3 Nucleated Red Blood Cells % 0.0 Neutrophils # 7.0 Lymphocytes # 0.9 Monocytes # 1.2 H Eosinophils # 0.2 Basophils # 0.0 Nucleated Red Blood Cells # 0.0 Sodium Level 138 Potassium Level 4.1 # Chloride Level 97 Carbon Dioxide Level 29 Anion Gap 16 Blood Urea Nitrogen 29 #H Creatinine 6.37 H Glucose Level 96 Hemoglobin A1c 5.5 Calcium Level 9.7 Total Bilirubin 0.4 Direct Bilirubin 0.00 Indirect Bilirubin 0.4 Aspartate Amino Transf (AST/SGOT) 24 Alanine Aminotransferase (ALT/SGPT) 27 Alkaline Phosphatase 151 H Total Protein 8.8 H Albumin 4.2 Globulin 4.60 H Albumin/Globulin Ratio 0.91 Thyroid Stimulating Hormone (TSH) 2.590 Medications Medications Current Medications Ondansetron HCl (Zofran Inj) 4 mg Q6H PRN IV NAUSEA AND/OR VOMITING; Start 10/07/17 at 12:30 Diagnostic Test (Pha) 1 ea 1 ea 02 XX ; Start 10/08/17 at 02:00 Dextrose/Sodium Chloride (D5-1/2ns) 1,000 ml @ 40 mls/hr Q24H IV Last administered on 10/08/17 16:13; Admin Dose 40 MLS/HR; Start 10/07/17 at 16:00 Miscellaneous Information 1 ea NOTE XX ; Start 10/07/17 at 13:00 Glucose (Glutose) 15 gm Q15M PRN PO DECREASED GLUCOSE; Start 10/07/17 at 13:00 Glucose (Glutose) 22.5 gm Q15M PRN PO DECREASED GLUCOSE; Start 10/07/17 at 13: 00 Dextrose (D50w Syringe) 25 ml Q15M PRN IV DECREASED GLUCOSE; Start 10/07/17 at 13:00 Dextrose (D50w Syringe) 50 ml Q15M PRN IV DECREASED GLUCOSE; Start 10/07/17 at 13:00 Glucagon (Glucagen) 1 mg Q15M PRN IM DECREASED GLUCOSE; Start 10/07/17 at 13:00 Glucose (Glutose) 15 gm Q15M PRN BUCCAL DECREASED GLUCOSE; Start 10/07/17 at 13 :00 Acetaminophen (Tylenol Tab) 650 mg Q6H PRN PO PAIN AND OR ELEVATED TEMP Last administered on 10/08/17 12:23; Admin Dose 650 MG; Start 10/08/17 at 01:30 Acetaminophen/ Hydrocodone Bitart ([place] (5/325)) 1 tab Q6H PRN PO HEADACHE Last administered on 10/08/17t 09:38; Admin Dose 1 TAB; Start 10/08/17 at 09:30 Pantoprazole (Protonix Tab) 40 mg DAILY@06 PO ; Start 10/09/17 at 06:00 Docusate Sodium (Colace) 100 mg BID PO ; Start 10/08/17 at 17:00 Polyethylene Glycol (Miralax) 17 gm DAILY PRN GTB CONSTIPATION; Start 10/08/17 at 16:30 MARLENY ELLISON Oct 08, 2017 16:27
[2017-10-08] MEDS ORDERED: POLYETHYLENE GLYCOL 17 GM PACKET GTB PRN (16:30)
[2017-10-08] MEDS ORDERED: DOCUSATE SODIUM 100 MG CAP PO SCH (17:00)
[2017-10-08] MEDS ORDERED: DOCUSATE SODIUM 100 MG CAP PO ONE (17:20)
[2017-10-08] MEDS ORDERED: KETOROLAC 15 MG INJ IV PRN (21:00)
[2017-10-09] VITALS (20 sets, daily range): BP systolic 103–160; BP diastolic 52–82; PULSE 75–108; RESP 18–20
[2017-10-09] MEDS: ACCU-CHEK XX SCH (02:00)
[2017-10-09] MEDS: PANTOPRAZOLE (EC) 40 MG TAB PO SCH (06:08)
[2017-10-09] MEDS: INSULIN ASPART [NOVOLOG] 3 ML PEN SC SCH ×2 (07:25→17:15)
[2017-10-09] MEDS: ACETAMINOPHEN 325 MG TAB PO PRN ×2 (09:10→15:40)
--- NOTE | 2017-10-09 11:08 | PN ---
Date/Time of Note Date/Time of Note DATE: 10/09/17 TIME: 11:07 Assessment/Plan VTE Prophylaxis VTE Prophylaxis Intervention: other Lines/Catheters IV Catheter Type (from Nrs): Peripheral IV Assessment/Plan Chief Complaint/Hosp Course - S/p complete heart block, Dr. Sherman is following in cardiology consultation, patient is currently in sinus rhythm with first-degree AV block. Continue telemetry monitoring. - End-stage renal failure on hemodialysis, Dr. Porter is following in nephrology consultation - Essential hypertension - Transient hypoxemia secondary to pulmonary edema, Dr. Gandara is following in pulmonology consultation. - Status post recent angiogram at Dr. Berrios's office. Monitor right femoral side site. Problems: Subjective 24 Hr Interval Summary Free Text/Dictation Patient denies any complaints Exam/Review of Systems Vital Signs Vitals Vital Signs Date Time Temp Pulse Resp B/P Pulse Ox O2 Delivery O2 Flow Rate FiO2 10/09/17 08:31 91 10/09/17 07:36 98.2 20 144/66 100 10/08/17 11:45 Room Air 10/07/17 21:00 2.0 10/07/17 08:56 21 Intake and Output 10/08/17 10/08/17 10/09/17 15:00 23:00 07:00 Intake Total 160 ml 600 ml 220 ml Output Total 0 ml Balance 160 ml 600 ml 220 ml Exam Constitutional: well developed Head: atraumatic, normocephalic Neck: supple Respiratory: clear to auscultation Cardiovascular: regular rate and rhythm Gastrointestinal: non-tender, soft Extremities: normal pulses Results Result Diagram: 10/08/17 04410/08/171 Results 24 hrs Laboratory Tests Test 10/08/17 12:29 10/08/17 17:40 10/09/17 08:00 Bedside Glucose 89 89 172 Medications Medications Current Medications Ondansetron HCl (Zofran Inj) 4 mg Q6H PRN IV NAUSEA AND/OR VOMITING; Start 10/07/17 at 12:30 Diagnostic Test (Pha) 1 ea 1 ea 02 XX ; Start 10/08/17 at 02:00 Dextrose/Sodium Chloride (D5-1/2ns) 1,000 ml @ 40 mls/hr Q24H IV Last administered on 10/08/17t 16:13; Admin Dose 40 MLS/HR; Start 10/07/17 at 16:00 Miscellaneous Information 1 ea NOTE XX ; Start 10/07/17 at 13:00 Glucose (Glutose) 15 gm Q15M PRN PO DECREASED GLUCOSE; Start 10/07/17 at 13:00 Glucose (Glutose) 22.5 gm Q15M PRN PO DECREASED GLUCOSE; Start 10/07/17 at 13: 00 Dextrose (D50w Syringe) 25 ml Q15M PRN IV DECREASED GLUCOSE; Start 10/07/17 at 13:00 Dextrose (D50w Syringe) 50 ml Q15M PRN IV DECREASED GLUCOSE; Start 10/07/17 at 13:00 Glucagon (Glucagen) 1 mg Q15M PRN IM DECREASED GLUCOSE; Start 10/07/17 at 13:00 Glucose (Glutose) 15 gm Q15M PRN BUCCAL DECREASED GLUCOSE; Start 10/07/17 at 13 :00 Acetaminophen (Tylenol Tab) 650 mg Q6H PRN PO PAIN AND OR ELEVATED TEMP Last administered on 10/09/17 09:10; Admin Dose 650 MG; Start 10/08/17 at 01:30 Acetaminophen/ Hydrocodone Bitart ([place] (5/325)) 1 tab Q6H PRN PO HEADACHE Last administered on 10/08/17 17:38; Admin Dose 1 TAB; Start 10/08/17 at 09:30 Pantoprazole (Protonix Tab) 40 mg DAILY@06 PO Last administered on 10/09/17 06 :08; Admin Dose 40 MG; Start 10/09/17 at 06:00 Polyethylene Glycol (Miralax) 17 gm DAILY PRN GTB CONSTIPATION; Start 10/08/17 at 16:30 Docusate Sodium (Colace) 100 mg BID PRN PO CONSTIPATION Last administered on 17:38; Admin Dose 100 MG; Start 10/09/17 at 17:00 Ketorolac Tromethamine (Toradol) 15 mg Q6H PRN IV PAIN Last administered on 21:52; Admin Dose 15 MG; Start 10/08/17 at 21:00; Stop 10/11/17 at 20:59 Hydralazine HCl (Apresoline) 25 mg TID PO Last administered on 10/08/17 21:52 ; Admin Dose 25 MG; Start 10/08/17 at 21:00 ORNELAS,PAZ Y Oct 09, 2017 11:08
--- NOTE | 2017-10-09 14:04 | RADRPT ---
PROCEDURE: XR Chest. CLINICAL INDICATION: Pneumonia TECHNIQUE: An AP view of the chest was obtained. COMPARISON: No prior exam is available for comparison. FINDINGS: There is prominence of the interstitial markings. No pleural effusion or pneumothorax is seen. Th e cardiomediastinal silhouette is not enlarged. The osseous structures demonstrate senescent change s. IMPRESSION: Mild prominence of the interstitial markings, may reflect mild underlying interstitial edema or medical investigator neymar lung changes. Lung aeration is mildly improved when compared to the prior examination. RPTAT: HH .Viridiana Daley MD, MD Date Time Electronically viewed and signed by .Viridiana Daley MD, MD on 10/09/2017 14:04 .G/
[2017-10-09 14:48] LABS: BASOPHILS % 0.3 % (0.0-2.0); EOSINOPHILS # 0.4 10^3/ul (0.0-0.5); EOSINOPHILS % 4.2 % (0.0-7.0); HEMATOCRIT 30.5 % (37.0-47.0); HEMOGLOBIN 9.9 g/dl (12.0-16.0); LYMPHOCYTES % 11.2 % (15.0-51.0); MEAN CORPUSCULAR HEMOGLOBIN 27.9 pg (29.0-33.0); MEAN CORPUSCULAR HGB CONC 32.5 g/dl (32.0-37.0); MEAN CORPUSCULAR VOLUME 85.9 fl (82.0-101.0); MEAN PLATELET VOLUME 9.6 fl (7.4-10.4); MONOCYTE # 1.2 10^3/ul (0.3-0.9); MONOCYTES % 12.7 % (0.0-11.0); NEUTROPHIL # 6.5 10^3/ul (1.6-7.5); NEUTROPHILS % 71.3 % (39.0-77.0); PLATELET COUNT 195 10^3/UL (140-415); RED BLOOD COUNT 3.55 10^6/ul (4.20-5.40); RED CELL DISTRIBUTION WIDTH 14.9 % (11.5-14.5); WHITE BLOOD COUNT 9.1 10^3/ul (4.8-10.8)
[2017-10-09 15:05] LABS: CALCIUM 8.9 mg/dl (8.4-10.2); CREATININE 9.64 mg/dl (0.44-1.00); MAGNESIUM 1.8 mg/dl (1.7-2.5); PHOSPHORUS 5.5 mg/dl (2.5-4.9); POTASSIUM 4.6 mmol/L (3.5-5.1)
[2017-10-09] MEDS ORDERED: DOCUSATE SODIUM 100 MG CAP PO PRN (17:00)
--- NOTE | 2017-10-09 17:10 | CONS ---
Date/Time of Note Date/Time of Note DATE: 10/09/17 TIME: 17:08 Consult Date/Type/Reason Admit Date/Time Oct 07, 2017 at 12:22 Initial Consult Date 10/07/17 Type of Consultation: Pulm Ordering Provider: BOO MALONE MD Subjective No events. Objective Vital Signs Date Time Temp Pulse Resp B/P Pulse Ox O2 Delivery O2 Flow Rate FiO2 10/09/17 17:00 82 10/09/17 15:27 98.0 20 160/75 99 10/08/17 11:45 Room Air 10/07/17 21:00 2.0 10/07/17 08:56 21 Intake and Output 10/08/17 10/08/17 10/09/17 15:00 23:00 07:00 Intake Total 160 ml 600 ml 220 ml Output Total 0 ml Balance 160 ml 600 ml 220 ml Exam HEENT: Neck supple; no JVD; no LAD CVS: RRR, S1 and S2 CHEST: Clear ABD: Soft, NT, + BS EXT: No c/c/e Results/Medications Result Diagram: 10/09/17 1440 10/09/17 1440 Results 24 hrs Laboratory Tests Test 10/08/17 17:40 10/09/17 08:00 10/09/17 14:40 Bedside Glucose 89 172 White Blood Count 9.1 Red Blood Count 3.55 L Hemoglobin 9.9 L Hematocrit 30.5 L Mean Corpuscular Volume 85.9 Mean Corpuscular Hemoglobin 27.9 L Mean Corpuscular Hemoglobin Concent 32.5 Red Cell Distribution Width 14.9 H Platelet Count 195 Mean Platelet Volume 9.6 Neutrophils % 71.3 Lymphocytes % 11.2 L Monocytes % 12.7 H Eosinophils % 4.2 Basophils % 0.3 Nucleated Red Blood Cells % 0.0 Neutrophils # 6.5 Lymphocytes # 1.0 Monocytes # 1.2 H Eosinophils # 0.4 Basophils # 0.0 Nucleated Red Blood Cells # 0.0 Sodium Level 135 Potassium Level 4.6 Chloride Level 96 L Carbon Dioxide Level 25 Anion Gap 19 H Blood Urea Nitrogen 52 H Creatinine 9.64 #H Glucose Level 97 Calcium Level 8.9 Phosphorus Level 5.5 H Magnesium Level 1.8 Medications Current Medications Ondansetron HCl (Zofran Inj) 4 mg Q6H PRN IV NAUSEA AND/OR VOMITING; Start 10/07/17 at 12:30 Diagnostic Test (Pha) (Accu-Chek) 1 ea 02 XX ; Start 10/08/17 at 02:00 Miscellaneous Information 1 ea NOTE XX ; Start 10/07/17 at 13:00 Glucose (Glutose) 15 gm Q15M PRN PO DECREASED GLUCOSE; Start 10/07/17 at 13:00 Glucose (Glutose) 22.5 gm Q15M PRN PO DECREASED GLUCOSE; Start 10/07/17 at 13: 00 Dextrose (D50w Syringe) 25 ml Q15M PRN IV DECREASED GLUCOSE; Start 10/07/17 at 13:00 Dextrose (D50w Syringe) 50 ml Q15M PRN IV DECREASED GLUCOSE; Start 10/07/17 at 13:00 Glucagon (Glucagen) 1 mg Q15M PRN IM DECREASED GLUCOSE; Start 10/07/17 at 13:00 Glucose (Glutose) 15 gm Q15M PRN BUCCAL DECREASED GLUCOSE; Start 10/07/17 at 13 :00 Acetaminophen (Tylenol Tab) 650 mg Q6H PRN PO PAIN AND OR ELEVATED TEMP Last administered on 10/09/17 15:40; Admin Dose 650 MG; Start 10/08/17 at 01:30 Acetaminophen/ Hydrocodone Bitart ([place] (5/325)) 1 tab Q6H PRN PO HEADACHE Last administered on 10/08/17 17:38; Admin Dose 1 TAB; Start 10/08/17 at 09:30 Pantoprazole (Protonix Tab) 40 mg DAILY@06 PO Last administered on 10/09/17 06 :08; Admin Dose 40 MG; Start 10/09/17 at 06:00 Polyethylene Glycol (Miralax) 17 gm DAILY PRN GTB CONSTIPATION; Start 10/08/17 at 16:30 Docusate Sodium (Colace) 100 mg BID PRN PO CONSTIPATION Last administered on 17:38; Admin Dose 100 MG; Start 10/09/17 at 17:00 Ketorolac Tromethamine (Toradol) 15 mg Q6H PRN IV PAIN Last administered on 21:52; Admin Dose 15 MG; Start 10/08/17 at 21:00; Stop 10/11/17 at 20:59 Hydralazine HCl (Apresoline) 25 mg TID PO Last administered on 12/8/17at 21:52 ; Admin Dose 25 MG; Start 10/08/17 at 21:00 Assessment/Plan Additional Assessment/Plan IMP: 1. Complete heart block 2. End-stage renal failure on hemodialysis 3. History of essential hypertension 4. Transient hypoxemia secondary to pulmonary edema RECS: 1 Titrate off O2 2. HD with UF 3. MAZIN MARCANO MD Oct 09, 2017 17:09
--- NOTE | 2017-10-09 17:23 | CONS ---
Date/Time of Note Date/Time of Note DATE: 10/09/17 TIME: 17:20 Assessment/Plan Assessment/Plan Additional Assessment/Plan 77 yof w/ ESRD on HD, aortic stenosis (moderate-severe), CAD, htn and other issues who had transient CHB that has resolved (likely due to hyperkalemia vs beta corby). Telemetry reveals sinus rhythm w/o any evidence of significant conduction problems. Pt feels well and appears compensated on exam. Can have further evaluated as outpt w/ Dr. Reddnig. Continue aspirin, statin, and bp meds (except beta corby or AV promise blocking agents). Ok to d/c home in am. Consultation Date/Type/Reason Admit Date/Time Oct 07, 2017 at 12:22 Initial Consult Date 10/07/17 Type of Consultation: Cardiology Reason for Consultation heart block, Referring Provider: BOO MALONE MD 24 HR Interval Summary Free Text/Dictation Feels better. Denies sob, cp or lightheadiness Exam/Review of Systems Vital Signs Vitals Vital Signs Date Time Temp Pulse Resp B/P Pulse Ox O2 Delivery O2 Flow Rate FiO2 10/09/17 16:30 86 10/09/17 15:27 98.0 20 160/75 99 10/08/17 11:45 Room Air 10/07/17 21:00 2.0 10/07/17 08:56 21 Intake and Output 10/08/17 10/08/17 10/09/17 15:00 23:00 07:00 Intake Total 160 ml 600 ml 220 ml Output Total 0 ml Balance 160 ml 600 ml 220 ml Exam Constitutional: alert, oriented, No distress Neck: jvd, other (distended EJ, elevated JVP) Respiratory: clear to auscultation Cardiovascular: other (4/6 ANNA @ RUSB), regular rate and rhythm Extremities: other (1+ edema) Results Result Diagram: 10/09/17 1440 10/09/17 1440 Results 24 hrs Laboratory Tests Test 10/08/17 17:40 10/09/17 08:00 10/09/17 14:40 Bedside Glucose 89 172 White Blood Count 9.1 Red Blood Count 3.55 L Hemoglobin 9.9 L Hematocrit 30.5 L Mean Corpuscular Volume 85.9 Mean Corpuscular Hemoglobin 27.9 L Mean Corpuscular Hemoglobin Concent 32.5 Red Cell Distribution Width 14.9 H Platelet Count 195 Mean Platelet Volume 9.6 Neutrophils % 71.3 Lymphocytes % 11.2 L Monocytes % 12.7 H Eosinophils % 4.2 Basophils % 0.3 Nucleated Red Blood Cells % 0.0 Neutrophils # 6.5 Lymphocytes # 1.0 Monocytes # 1.2 H Eosinophils # 0.4 Basophils # 0.0 Nucleated Red Blood Cells # 0.0 Sodium Level 135 Potassium Level 4.6 Chloride Level 96 L Carbon Dioxide Level 25 Anion Gap 19 H Blood Urea Nitrogen 52 H Creatinine 9.64 #H Glucose Level 97 Calcium Level 8.9 Phosphorus Level 5.5 H Magnesium Level 1.8 Medications Medications Current Medications Ondansetron HCl (Zofran Inj) 4 mg Q6H PRN IV NAUSEA AND/OR VOMITING; Start 10/07/17 at 12:30 Diagnostic Test (Pha) (Accu-Chek) 1 ea 02 XX ; Start 10/08/17 at 02:00 Miscellaneous Information 1 ea NOTE XX ; Start 10/07/17 at 13:00 Glucose (Glutose) 15 gm Q15M PRN PO DECREASED GLUCOSE; Start 10/07/17 at 13:00 Glucose (Glutose) 22.5 gm Q15M PRN PO DECREASED GLUCOSE; Start 10/07/17 at 13: 00 Dextrose (D50w Syringe) 25 ml Q15M PRN IV DECREASED GLUCOSE; Start 10/07/17 at 13:00 Dextrose (D50w Syringe) 50 ml Q15M PRN IV DECREASED GLUCOSE; Start 10/07/17 at 13:00 Glucagon (Glucagen) 1 mg Q15M PRN IM DECREASED GLUCOSE; Start 10/07/17 at 13:00 Glucose (Glutose) 15 gm Q15M PRN BUCCAL DECREASED GLUCOSE; Start 10/07/17 at 13 :00 Acetaminophen (Tylenol Tab) 650 mg Q6H PRN PO PAIN AND OR ELEVATED TEMP Last administered on 10/09/17 15:40; Admin Dose 650 MG; Start 10/08/17 at 01:30 Acetaminophen/ Hydrocodone Bitart ([place] (5/325)) 1 tab Q6H PRN PO HEADACHE Last administered on 10/08/17 17:38; Admin Dose 1 TAB; Start 10/08/17 at 09:30 Pantoprazole (Protonix Tab) 40 mg DAILY@06 PO Last administered on 10/09/17 06 :08; Admin Dose 40 MG; Start 10/09/17 at 06:00 Polyethylene Glycol (Miralax) 17 gm DAILY PRN GTB CONSTIPATION; Start 10/08/17 at 16:30 Docusate Sodium (Colace) 100 mg BID PRN PO CONSTIPATION Last administered on 17:38; Admin Dose 100 MG; Start 10/09/17 at 17:00 Ketorolac Tromethamine (Toradol) 15 mg Q6H PRN IV PAIN Last administered on 21:52; Admin Dose 15 MG; Start 10/08/17 at 21:00; Stop 10/11/17 at 20:59 Hydralazine HCl (Apresoline) 25 mg TID PO Last administered on 10/08/17 21:52 ; Admin Dose 25 MG; Start 10/08/17 at 21:00 MARGIE YUAN Oct 09, 2017 17:23
[2017-10-09] MEDS: CALCIUM ACETATE 667 MG CAP PO SCH (17:31)
[2017-10-09] MEDS: HYDROCODONE/APAP (5/325) TAB PO PRN (23:45)
[2017-10-10] VITALS (13 sets, daily range): BP systolic 112–174; BP diastolic 53–75; PULSE 81–99; RESP 18–20
[2017-10-10] MEDS: ACCU-CHEK XX SCH (01:01)
[2017-10-10] MEDS: ACETAMINOPHEN 325 MG TAB PO PRN ×3 (03:15→20:26)
[2017-10-10] MEDS: PANTOPRAZOLE (EC) 40 MG TAB PO SCH (05:17)
[2017-10-10] MEDS: HYDROCODONE/APAP (5/325) TAB PO PRN (05:17)
[2017-10-10] MEDS: INSULIN ASPART [NOVOLOG] 3 ML PEN SC SCH ×2 (07:25→17:17)
[2017-10-10] MEDS: CALCIUM ACETATE 667 MG CAP PO SCH ×3 (08:15→17:15)
--- NOTE | 2017-10-10 11:10 | PN ---
Date/Time of Note Date/Time of Note DATE: 10/10/17 TIME: 11:09 Assessment/Plan VTE Prophylaxis VTE Prophylaxis Intervention: other Lines/Catheters IV C[facility]ter Type (from [facility]): [facility] Urinary Cath still in place: No Assessment/Plan Chief Complaint/Hosp Course - S/p complete heart block, Dr. Sherman is following in cardiology consultation, patient is currently in sinus rhythm with first-degree AV block. Continue telemetry monitoring. - End-stage renal failure on hemodialysis, Dr. Porter is following in nephrology consultation - Essential hypertension - Transient hypoxemia secondary to pulmonary edema, Dr. Gandara is following in pulmonology consultation. - Status post recent angiogram at Dr. Berrios's office. Monitor right femoral side site. Problems: Subjective 24 Hr Interval Summary Free Text/Dictation Patient has no complaints Exam/Review of Systems Vital Signs Vitals Vital Signs Date Time Temp Pulse Resp B/P Pulse Ox O2 Delivery O2 Flow Rate FiO2 10/10/17 08:28 83 10/10/17 08:17 98.0 20 147/74 98 10/08/17 11:45 Room Air 10/07/17 21:00 2.0 10/07/17 08:56 21 Intake and Output 10/09/17 10/09/17 10/10/17 15:00 23:00 07:00 Intake Total 1000 ml 250 ml Output Total 3000 ml Balance -2000 ml 250 ml Exam Constitutional: well developed Head: atraumatic, normocephalic Neck: supple Respiratory: clear to auscultation Cardiovascular: regular rate and rhythm Gastrointestinal: non-tender, soft Extremities: normal pulses Results Result Diagram: 10/09/17 1440 10/09/17 1440 Results 24 hrs Laboratory Tests Test 10/09/17 14:40 10/09/17 17:14 10/10/17 08:04 White Blood Count 9.1 Red Blood Count 3.55 L Hemoglobin 9.9 L Hematocrit 30.5 L Mean Corpuscular Volume 85.9 Mean Corpuscular Hemoglobin 27.9 L Mean Corpuscular Hemoglobin Concent 32.5 Red Cell Distribution Width 14.9 H Platelet Count 195 Mean Platelet Volume 9.6 Neutrophils % 71.3 Lymphocytes % 11.2 L Monocytes % 12.7 H Eosinophils % 4.2 Basophils % 0.3 Nucleated Red Blood Cells % 0.0 Neutrophils # 6.5 Lymphocytes # 1.0 Monocytes # 1.2 H Eosinophils # 0.4 Basophils # 0.0 Nucleated Red Blood Cells # 0.0 Sodium Level 135 Potassium Level 4.6 Chloride Level 96 L Carbon Dioxide Level 25 Anion Gap 19 H Blood Urea Nitrogen 52 H Creatinine 9.64 #H Glucose Level 97 Calcium Level 8.9 Phosphorus Level 5.5 H Magnesium Level 1.8 Bedside Glucose 115 98 Medications Medications Current Medications Ondansetron HCl (Zofran Inj) 4 mg Q6H PRN IV NAUSEA AND/OR VOMITING; Start 10/07/17 at 12:30 Diagnostic Test (Pha) (Accu-Chek) 1 ea 02 XX ; Start 10/08/17 at 02:00 Miscellaneous Information 1 ea NOTE XX ; Start 10/07/17 at 13:00 Glucose (Glutose) 15 gm Q15M PRN PO DECREASED GLUCOSE; Start 10/07/17 at 13:00 Glucose (Glutose) 22.5 gm Q15M PRN PO DECREASED GLUCOSE; Start 10/07/17 at 13: 00 Dextrose (D50w Syringe) 25 ml Q15M PRN IV DECREASED GLUCOSE; Start 10/07/17 at 13:00 Dextrose (D50w Syringe) 50 ml Q15M PRN IV DECREASED GLUCOSE; Start 10/07/17 at 13:00 Glucagon (Glucagen) 1 mg Q15M PRN IM DECREASED GLUCOSE; Start 10/07/17 at 13:00 Glucose (Glutose) 15 gm Q15M PRN BUCCAL DECREASED GLUCOSE; Start 10/07/17 at 13 :00 Acetaminophen (Tylenol Tab) 650 mg Q6H PRN PO PAIN AND OR ELEVATED TEMP Last administered on 10/10/17 03:15; Admin Dose 650 MG; Start 10/08/17 at 01:30 Acetaminophen/ Hydrocodone Bitart ([place] (5/325)) 1 tab Q6H PRN PO HEADACHE Last administered on 10/10/17 05:17; Admin Dose 1 TAB; Start 10/08/17 at 09:30 Pantoprazole (Protonix Tab) 40 mg DAILY@06 PO Last administered on 10/10/17 05:17; Admin Dose 40 MG; Start 10/09/17 at 06:00 Polyethylene Glycol (Miralax) 17 gm DAILY PRN GTB CONSTIPATION; Start 10/08/17 at 16:30 Docusate Sodium (Colace) 100 mg BID PRN PO CONSTIPATION Last administered on 17:38; Admin Dose 100 MG; Start 10/09/17 at 17:00 Hydralazine HCl (Apresoline) 25 mg TID PO Last administered on 10/10/17 08:15 ; Admin Dose 25 MG; Start 10/08/17 at 21:00 PAZ ORNELAS Oct 10, 2017 11:10
--- NOTE | 2017-10-10 16:15 | CONS ---
Date/Time of Note Date/Time of Note DATE: 10/10/17 TIME: 16:15 Assessment/Plan Assessment/Plan Chief Complaint/Hosp Course 1. ESRD 2. Cardiac arrhythmia with possible third-degree heart block per cardiology. 3. Anemia 4. Patient has clinical pulmonary edema. 5. Hypertension. 6. Status post coronary angiogram 2 days ago. 7. Diabetes mellitus. 8. Obesity. 9. History of epistaxis. 10. History of dyslipidemia. Problems: Additional Assessment/Plan 1. continue HD 2. can be discharged Consultation Date/Type/Reason Admit Date/Time Oct 07, 2017 at 12:22 Initial Consult Date 10/07/17 Type of Consultation: nephrology Reason for Consultation Dr Malone Referring Provider: BOO MALONE MD Exam/Review of Systems Vital Signs Vitals Vital Signs Date Time Temp Pulse Resp B/P Pulse Ox O2 Delivery O2 Flow Rate FiO2 10/10/17 15:34 98.0 86 20 145/70 98 10/08/17 11:45 Room Air 10/07/17 21:00 2.0 10/07/17 08:56 21 Intake and Output 10/09/17 10/09/17 10/10/17 15:00 23:00 07:00 Intake Total 1000 ml 250 ml Output Total 3000 ml Balance -2000 ml 250 ml Exam Constitutional: alert, oriented Respiratory: diminished breath sounds Cardiovascular: regular rate and rhythm Gastrointestinal: soft Results Result Diagram: 10/09/17 1440 10/09/17 1440 Results 24 hrs Laboratory Tests Test 10/09/17 17:14 10/10/17 08:04 Bedside Glucose 115 98 Medications Medications Current Medications Ondansetron HCl (Zofran Inj) 4 mg Q6H PRN IV NAUSEA AND/OR VOMITING; Start 10/07/17 at 12:30 Diagnostic Test (Pha) (Accu-Chek) 1 ea 02 XX ; Start 10/08/17 at 02:00 Miscellaneous Information 1 ea NOTE XX ; Start 10/07/17 at 13:00 Glucose (Glutose) 15 gm Q15M PRN PO DECREASED GLUCOSE; Start 10/07/17 at 13:00 Glucose (Glutose) 22.5 gm Q15M PRN PO DECREASED GLUCOSE; Start 10/07/17 at 13: 00 Dextrose (D50w Syringe) 25 ml Q15M PRN IV DECREASED GLUCOSE; Start 10/07/17 at 13:00 Dextrose (D50w Syringe) 50 ml Q15M PRN IV DECREASED GLUCOSE; Start 10/07/17 at 13:00 Glucagon (Glucagen) 1 mg Q15M PRN IM DECREASED GLUCOSE; Start 10/07/17 at 13:00 Glucose (Glutose) 15 gm Q15M PRN BUCCAL DECREASED GLUCOSE; Start 10/07/17 at 13 :00 Acetaminophen (Tylenol Tab) 650 mg Q6H PRN PO PAIN AND OR ELEVATED TEMP Last administered on 10/10/17 12:28; Admin Dose 650 MG; Start 10/08/17 at 01:30 Acetaminophen/ Hydrocodone Bitart ([place] (5/325)) 1 tab Q6H PRN PO HEADACHE Last administered on 10/10/17 05:17; Admin Dose 1 TAB; Start 10/08/17 at 09:30 Pantoprazole (Protonix Tab) 40 mg DAILY@06 PO Last administered on 10/10/17 05:17; Admin Dose 40 MG; Start 10/09/17 at 06:00 Polyethylene Glycol (Miralax) 17 gm DAILY PRN GTB CONSTIPATION; Start 10/08/17 at 16:30 Docusate Sodium (Colace) 100 mg BID PRN PO CONSTIPATION Last administered on 17:38; Admin Dose 100 MG; Start 10/09/17 at 17:00 Hydralazine HCl (Apresoline) 25 mg TID PO Last administered on 10/10/17 12:28 ; Admin Dose 25 MG; Start 10/08/17 at 21:00 MARLENY ELLISON Oct 10, 2017 16:15
--- NOTE | 2017-10-10 17:58 | CONS ---
Date/Time of Note Date/Time of Note DATE: 10/10/17 TIME: 17:57 Consult Date/Type/Reason Admit Date/Time Oct 07, 2017 at 12:22 Initial Consult Date 10/07/17 Type of Consultation: Pulm Ordering Provider: BOO MALONE MD Subjective No events. Doing well. Objective Vital Signs Date Time Temp Pulse Resp B/P Pulse Ox O2 Delivery O2 Flow Rate FiO2 10/10/17 15:34 98.0 86 20 145/70 98 10/08/17 11:45 Room Air 10/07/17 21:00 2.0 10/07/17 08:56 21 Intake and Output 10/09/17 10/09/17 10/10/17 15:00 23:00 07:00 Intake Total 1000 ml 250 ml Output Total 3000 ml Balance -2000 ml 250 ml Exam HEENT: Neck supple; no JVD; no LAD CVS: RRR, S1 and S2 CHEST: Clear ABD: Soft, NT, + BS EXT: No c/c/e Results/Medications Result Diagram: 10/09/17 1440 10/09/17 1440 Results 24 hrs Laboratory Tests Test 10/10/17 08:04 10/10/17 17:14 Bedside Glucose 98 111 Medications Current Medications Ondansetron HCl (Zofran Inj) 4 mg Q6H PRN IV NAUSEA AND/OR VOMITING Last administered on 10/10/17t 17:36; Admin Dose 4 MG; Start 10/07/17 at 12:30 Diagnostic Test (Pha) (Accu-Chek) 1 ea 02 XX ; Start 10/08/17 at 02:00 Miscellaneous Information 1 ea NOTE XX ; Start 10/07/17 at 13:00 Glucose (Glutose) 15 gm Q15M PRN PO DECREASED GLUCOSE; Start 10/07/17 at 13:00 Glucose (Glutose) 22.5 gm Q15M PRN PO DECREASED GLUCOSE; Start 10/07/17 at 13: 00 Dextrose (D50w Syringe) 25 ml Q15M PRN IV DECREASED GLUCOSE; Start 10/07/17 at 13:00 Dextrose (D50w Syringe) 50 ml Q15M PRN IV DECREASED GLUCOSE; Start 10/07/17 at 13:00 Glucagon (Glucagen) 1 mg Q15M PRN IM DECREASED GLUCOSE; Start 10/07/17 at 13:00 Glucose (Glutose) 15 gm Q15M PRN BUCCAL DECREASED GLUCOSE; Start 10/07/17 at 13 :00 Acetaminophen (Tylenol Tab) 650 mg Q6H PRN PO PAIN AND OR ELEVATED TEMP Last administered on 10/10/17 12:28; Admin Dose 650 MG; Start 10/08/17 at 01:30 Acetaminophen/ Hydrocodone Bitart ([place] (5/325)) 1 tab Q6H PRN PO HEADACHE Last administered on 10/10/17 05:17; Admin Dose 1 TAB; Start 10/08/17 at 09:30 Pantoprazole (Protonix Tab) 40 mg DAILY@06 PO Last administered on 10/10/17 05:17; Admin Dose 40 MG; Start 10/09/17 at 06:00 Polyethylene Glycol (Miralax) 17 gm DAILY PRN GTB CONSTIPATION; Start 10/08/17 at 16:30 Docusate Sodium (Colace) 100 mg BID PRN PO CONSTIPATION Last administered on 17:38; Admin Dose 100 MG; Start 10/09/17 at 17:00 Hydralazine HCl (Apresoline) 25 mg TID PO Last administered on 10/10/17 12:28 ; Admin Dose 25 MG; Start 10/08/17 at 21:00 Assessment/Plan Additional Assessment/Plan IMP: 1. Complete heart block 2. End-stage renal failure on hemodialysis 3. History of essential hypertension 4. Transient hypoxemia secondary to pulmonary edema RECS: 1 Titrate off O2 2. HD with UF 3. OOB 4. D/C planning per PMD MAZIN TALAVERA MD Oct 10, 2017 17:58
[2017-10-11] VITALS (19 sets, daily range): BP systolic 126–184; BP diastolic 60–97; PULSE 83–112; RESP 16–18
[2017-10-11] MEDS: ACCU-CHEK XX SCH (01:00)
[2017-10-11] MEDS: PANTOPRAZOLE (EC) 40 MG TAB PO SCH (04:53)
[2017-10-11] MEDS: ACETAMINOPHEN 325 MG TAB PO PRN ×2 (04:54→17:38)
[2017-10-11] MEDS: INSULIN ASPART [NOVOLOG] 3 ML PEN SC SCH ×2 (07:25→12:30)
[2017-10-11] MEDS: CALCIUM ACETATE 667 MG CAP PO SCH ×3 (08:02→17:37)
--- NOTE | 2017-10-11 11:33 | CONS ---
Date/Time of Note Date/Time of Note DATE: 10/11/17 TIME: 11:27 Consult Date/Type/Reason Admit Date/Time Oct 07, 2017 at 12:22 Initial Consult Date 10/07/17 Type of Consultation: Pulm Ordering Provider: BOO MALONE MD Subjective Patient comfortable this morning. No new events. Objective Vital Signs Date Time Temp Pulse Resp B/P Pulse Ox O2 Delivery O2 Flow Rate FiO2 10/11/17 08:18 92 10/11/17 08:15 Nasal Cannula 1.0 10/11/17 07:55 98.0 17 146/68 98 10/07/17 08:56 21 Intake and Output 10/10/17 10/10/17 10/11/17 15:00 23:00 07:00 Intake Total 500 ml 250 ml Balance 500 ml 250 ml Exam GENERAL: Elderly lady comfortable at rest VITAL SIGNS: per chart NECK: Supple. No JVD or lymphadenopathy. CARDIAC EXAM: S1, S2. No added sounds or murmurs. CHEST: clear bilaterally, No added sounds, rales or wheezes ABDOMEN: Soft, nontender. No guarding or rebound. EXTREMITIES: No cyanosis, clubbing or edema. NEUROLOGIC: Generalized weakness. No focal deficits. Results/Medications Result Diagram: 10/09/17 1440 10/09/17 1440 Results 24 hrs Laboratory Tests Test 10/10/17 17:14 10/11/17 07:59 Bedside Glucose 111 127 Medications Current Medications Ondansetron HCl (Zofran Inj) 4 mg Q6H PRN IV NAUSEA AND/OR VOMITING Last administered on 10/10/17t 17:36; Admin Dose 4 MG; Start 10/07/17 at 12:30 Diagnostic Test (Pha) (Accu-Chek) 1 ea 02 XX ; Start 10/08/17 at 02:00 Miscellaneous Information 1 ea NOTE XX ; Start 10/07/17 at 13:00 Glucose (Glutose) 15 gm Q15M PRN PO DECREASED GLUCOSE; Start 10/07/17 at 13:00 Glucose (Glutose) 22.5 gm Q15M PRN PO DECREASED GLUCOSE; Start 10/07/17 at 13: 00 Dextrose (D50w Syringe) 25 ml Q15M PRN IV DECREASED GLUCOSE; Start 10/07/17 at 13:00 Dextrose (D50w Syringe) 50 ml Q15M PRN IV DECREASED GLUCOSE; Start 10/07/17 at 13:00 Glucagon (Glucagen) 1 mg Q15M PRN IM DECREASED GLUCOSE; Start 10/07/17 at 13:00 Glucose (Glutose) 15 gm Q15M PRN BUCCAL DECREASED GLUCOSE; Start 10/07/17 at 13 :00 Acetaminophen (Tylenol Tab) 650 mg Q6H PRN PO PAIN AND OR ELEVATED TEMP Last administered on 10/11/17 04:54; Admin Dose 650 MG; Start 10/08/17 at 01:30 Acetaminophen/ Hydrocodone Bitart ([employer] (5/325)) 1 tab Q6H PRN PO HEADACHE Last administered on 10/10/17 05:17; Admin Dose 1 TAB; Start 10/08/17 at 09:30 Pantoprazole (Protonix Tab) 40 mg DAILY@06 PO Last administered on 10/11/17 04:53; Admin Dose 40 MG; Start 10/09/17 at 06:00 Polyethylene Glycol (Miralax) 17 gm DAILY PRN GTB CONSTIPATION; Start 10/08/17 at 16:30 Docusate Sodium (Colace) 100 mg BID PRN PO CONSTIPATION Last administered on 17:38; Admin Dose 100 MG; Start 10/09/17 at 17:00 Hydralazine HCl (Apresoline) 25 mg TID PO Last administered on 10/11/17 08:03 ; Admin Dose 25 MG; Start 10/08/17 at 21:00 Assessment/Plan Chief Complaint/Hosp Course IMP: 1. Complete heart block 2. End-stage renal failure on hemodialysis 3. History of essential hypertension 4. Transient hypoxemia secondary to pulmonary edema RECS: 1 Titrate off O2 2. HD with UF 3. OOB 4. D/C planning per PMD Problems: RORY WEAVER MD, FCCP Oct 11, 2017 11:33
[2017-10-11 13:24] LABS: AADO2 Arterial 8.6 mmHg (7.0-24.0); Allen Test ACCEPTAB; Arterial COHb 1.1 % (0.0-3.0); Arterial Fraction of Oxyhgb 96.1 % (93.0-99.0); Arterial HCO3 25.3 mmol/L (22.0-26.0); Arterial MetHb 0.3 % (0.0-1.5); Arterial Total Hemglobin 11.5 g/dl (12.0-18.0); MODE ROOM AIR
--- NOTE | 2017-10-11 13:46 | CONS ---
Date/Time of Note Date/Time of Note DATE: 10/11/17 TIME: 13:46 Assessment/Plan Assessment/Plan Chief Complaint/Hosp Course 1 ESRD M/W/F 2. Cardiac arrhythmia with possible third-degree heart block per cardiology. 3. Anemia 4. Patient has clinical pulmonary edema. 5. Hypertension. 6. Status post coronary angiogram 2 days ago. 7. Diabetes mellitus. 8. Obesity. 9. History of epistaxis. 10. History of dyslipidemia. Recs - HD/UF today - dc planning per primary Problems: Consultation Date/Type/Reason Admit Date/Time Oct 07, 2017 at 12:22 Initial Consult Date 10/07/17 Type of Consultation: Renal Referring Provider: BOO MALONE MD 24 HR Interval Summary Free Text/Dictation Wants to go home Exam/Review of Systems Vital Signs Vitals Vital Signs Date Time Temp Pulse Resp B/P Pulse Ox O2 Delivery O2 Flow Rate FiO2 10/11/17 12:15 89 10/11/17 11:29 98.1 17 153/97 100 10/11/17 08:15 Nasal Cannula 1.0 10/07/17 08:56 21 Intake and Output 10/10/17 10/10/17 10/11/17 15:00 23:00 07:00 Intake Total 500 ml 250 ml Balance 500 ml 250 ml Exam Constitutional: alert, oriented Respiratory: diminished breath sounds Cardiovascular: regular rate and rhythm Gastrointestinal: soft EXT : LUE fistula Results Result Diagram: 10/09/17 1440 10/09/17 1440 Results 24 hrs Laboratory Tests Test 10/10/17 17:14 10/11/17 07:59 10/11/17 12:30 10/11/17 13:00 Bedside Glucose 111 127 100 Blood Gas Specimen Source Blood arterial Arterial Blood Date Drawn 10/11/2017 1:00:01 PM Arterial Blood pH (Temp corrected) 7.427 Arterial Blood pCO2 (Temp correct) 39.3 Arterial Blood pO2 (Temp corrected) 94.1 H Arterial Blood HCO3 25.3 Arterial Blood Base Excess 1.0 Arterial Blood Oxygen Saturation 97.5 Phan Test ACCEPTAB Arterial Blood Gas Puncture Site Right Radial Arterial Blood Carboxyhemoglobin 1.1 Arterial Blood Methemoglobin 0.3 Blood Gas A-a O2 Differential 8.6 Oxyhemoglobin Percent 96.1 Total Hemoglobin 11.5 L Blood Gas Temperature 37.0 Blood Gas Modality ROOM AIR FiO2 21.0 Blood Gas Notified Whom JLD Blood Gas Notified Time 10/11/2017 1:24:28 PM Medications Medications Current Medications Ondansetron HCl (Zofran Inj) 4 mg Q6H PRN IV NAUSEA AND/OR VOMITING Last administered on 10/10/17 17:36; Admin Dose 4 MG; Start 10/07/17 at 12:30 Diagnostic Test (Pha) (Accu-Chek) 1 ea 02 XX ; Start 10/08/17 at 02:00 Miscellaneous Information 1 ea NOTE XX ; Start 10/07/17 at 13:00 Glucose (Glutose) 15 gm Q15M PRN PO DECREASED GLUCOSE; Start 10/07/17 at 13:00 Glucose (Glutose) 22.5 gm Q15M PRN PO DECREASED GLUCOSE; Start 10/07/17 at 13: 00 Dextrose (D50w Syringe) 25 ml Q15M PRN IV DECREASED GLUCOSE; Start 10/07/17 at 13:00 Dextrose (D50w Syringe) 50 ml Q15M PRN IV DECREASED GLUCOSE; Start 10/07/17 at 13:00 Glucagon (Glucagen) 1 mg Q15M PRN IM DECREASED GLUCOSE; Start 10/07/17 at 13:00 Glucose (Glutose) 15 gm Q15M PRN BUCCAL DECREASED GLUCOSE; Start 10/07/17 at 13 :00 Acetaminophen (Tylenol Tab) 650 mg Q6H PRN PO PAIN AND OR ELEVATED TEMP Last administered on 10/11/17 04:54; Admin Dose 650 MG; Start 10/08/17 at 01:30 Acetaminophen/ Hydrocodone Bitart ([place] (5/325)) 1 tab Q6H PRN PO HEADACHE Last administered on 10/10/17 05:17; Admin Dose 1 TAB; Start 10/08/17 at 09:30 Pantoprazole (Protonix Tab) 40 mg DAILY@06 PO Last administered on 10/11/17 04:53; Admin Dose 40 MG; Start 10/09/17 at 06:00 Polyethylene Glycol (Miralax) 17 gm DAILY PRN GTB CONSTIPATION; Start 10/08/17 at 16:30 Docusate Sodium (Colace) 100 mg BID PRN PO CONSTIPATION Last administered on 17:38; Admin Dose 100 MG; Start 10/09/17 at 17:00 Hydralazine HCl (Apresoline) 25 mg TID PO Last administered on 10/11/17t 13:09 ; Admin Dose 25 MG; Start 10/08/17 at 21:00 GASTON KOCH MD Oct 11, 2017 13:46
[2017-10-11 16:45] LABS: BASOPHILS % 0.6 % (0.0-2.0); EOSINOPHILS # 0.4 10^3/ul (0.0-0.5); EOSINOPHILS % 5.3 % (0.0-7.0); HEMATOCRIT 31.4 % (37.0-47.0); HEMOGLOBIN 10.1 g/dl (12.0-16.0); LYMPHOCYTES # 1.2 10^3/ul (0.8-2.9); LYMPHOCYTES % 16.8 % (15.0-51.0); MEAN CORPUSCULAR HEMOGLOBIN 27.5 pg (29.0-33.0); MEAN CORPUSCULAR HGB CONC 32.2 g/dl (32.0-37.0); MEAN CORPUSCULAR VOLUME 85.6 fl (82.0-101.0); MEAN PLATELET VOLUME 9.8 fl (7.4-10.4); MONOCYTE # 0.9 10^3/ul (0.3-0.9); MONOCYTES % 12.2 % (0.0-11.0); NEUTROPHIL # 4.5 10^3/ul (1.6-7.5); NEUTROPHILS % 64.7 % (39.0-77.0); PLATELET COUNT 232 10^3/UL (140-415); RED BLOOD COUNT 3.67 10^6/ul (4.20-5.40); RED CELL DISTRIBUTION WIDTH 14.7 % (11.5-14.5)
[2017-10-11 17:15] LABS: ALBUMIN 3.9 g/dl (3.3-4.9); ALBUMIN/GLOBULIN RATIO 0.86; CALCIUM 9.3 mg/dl (8.4-10.2); CREATININE 8.41 mg/dl (0.44-1.00); POTASSIUM 4.1 mmol/L (3.5-5.1); TOTAL PROTEIN 8.4 g/dl (6.1-8.1)
--- NOTE | 2017-10-11 17:36 | PN ---
Date/Time of Note Date/Time of Note DATE: 10/11/17 TIME: 17:32 Assessment/Plan VTE Prophylaxis VTE Prophylaxis Intervention: SCD's Lines/Catheters IV [facility] Type ([facility] Urinary Cath still in place: No Assessment/Plan Chief Complaint/Hosp Course Patient denies any chest pain denies any shortness of breath, patient is currently in sinus rhythm with first-degree AV block. Stable electrolytes, patient cleared for DC by consultants, DC planning. Assessment/Plan - S/p complete heart block, Dr. Sherman is following in cardiology consultation, patient is currently in sinus rhythm with first-degree AV block. Continue telemetry monitoring. - End-stage renal failure on hemodialysis, Dr. Porter is following in nephrology consultation - Essential hypertension - Transient hypoxemia secondary to pulmonary edema, Dr. Gandara is following in pulmonology consultation. - Status post recent angiogram at Dr. Berrios's office. Monitor right femoral side site. Further recommendations based on clinical course. Plan of care discussed with Dr. Jay. Problems: Exam/Review of Systems Vital Signs Vitals Vital Signs Date Time Temp Pulse Resp B/P Pulse Ox O2 Delivery O2 Flow Rate FiO2 10/11/17 16:12 86 10/11/17 15:48 97.5 16 135/72 98 10/11/17 08:15 Nasal Cannula 1.0 10/07/17 08:56 21 Intake and Output 10/10/17 10/10/17 10/11/17 15:00 23:00 07:00 Intake Total 500 ml 250 ml Balance 500 ml 250 ml Exam Constitutional: alert Head: normocephalic Neck: supple Respiratory: normal air movement Cardiovascular: nl pulses, regular rate and rhythm, systolic murmur Gastrointestinal: non-tender, soft Extremities: edema, normal pulses, other (Left upper extremity AV fistula) Neurological: nl mental status Results Result Diagram: 10/11/17 1610 10/11/17 1610 Results 24 hrs Laboratory Tests Test 10/11/17 07:59 10/11/17 12:30 10/11/17 13:00 10/11/17 16:10 Bedside Glucose 127 100 Blood Gas Specimen Source Blood arterial Arterial Blood Date Drawn 10/11/2017 1:00:01 PM Arterial Blood pH (Temp corrected) 7.427 Arterial Blood pCO2 (Temp correct) 39.3 Arterial Blood pO2 (Temp corrected) 94.1 H Arterial Blood HCO3 25.3 Arterial Blood Base Excess 1.0 Arterial Blood Oxygen Saturation 97.5 Phan Test ACCEPTAB Arterial Blood Gas Puncture Site Right Radial Arterial Blood Carboxyhemoglobin 1.1 Arterial Blood Methemoglobin 0.3 Blood Gas A-a O2 Differential 8.6 Oxyhemoglobin Percent 96.1 Total Hemoglobin 11.5 L Blood Gas Temperature 37.0 Blood Gas Modality ROOM AIR FiO2 21.0 Blood Gas Notified Whom JLD Blood Gas Notified Time 10/11/2017 1:24:28 PM White Blood Count 7.0 # Red Blood Count 3.67 L Hemoglobin 10.1 L Hematocrit 31.4 L Mean Corpuscular Volume 85.6 Mean Corpuscular Hemoglobin 27.5 L Mean Corpuscular Hemoglobin Concent 32.2 Red Cell Distribution Width 14.7 H Platelet Count 232 Mean Platelet Volume 9.8 Neutrophils % 64.7 Lymphocytes % 16.8 Monocytes % 12.2 H Eosinophils % 5.3 Basophils % 0.6 Nucleated Red Blood Cells % 0.0 Neutrophils # 4.5 Lymphocytes # 1.2 Monocytes # 0.9 Eosinophils # 0.4 Basophils # 0.0 Nucleated Red Blood Cells # 0.0 Sodium Level 137 Potassium Level 4.1 Chloride Level 95 L Carbon Dioxide Level 29 Anion Gap 17 H Blood Urea Nitrogen 48 H Creatinine 8.41 H Glucose Level 124 Calcium Level 9.3 Total Bilirubin 0.0 L Direct Bilirubin 0.00 Indirect Bilirubin 0.0 Aspartate Amino Transf (AST/SGOT) 33 Alanine Aminotransferase (ALT/SGPT) 24 Alkaline Phosphatase 128 H Total Protein 8.4 H Albumin 3.9 Globulin 4.50 H Albumin/Globulin Ratio 0.86 Medications Medications Current Medications Ondansetron HCl (Zofran Inj) 4 mg Q6H PRN IV NAUSEA AND/OR VOMITING Last administered on 10/10/17t 17:36; Admin Dose 4 MG; Start 10/07/17 at 12:30 Diagnostic Test (Pha) (Accu-Chek) 1 ea 02 XX ; Start 10/08/17 at 02:00 Miscellaneous Information 1 ea NOTE XX ; Start 10/07/17 at 13:00 Glucose (Glutose) 15 gm Q15M PRN PO DECREASED GLUCOSE; Start 10/07/17 at 13:00 Glucose (Glutose) 22.5 gm Q15M PRN PO DECREASED GLUCOSE; Start 10/07/17 at 13: 00 Dextrose (D50w Syringe) 25 ml Q15M PRN IV DECREASED GLUCOSE; Start 10/07/17 at 13:00 Dextrose (D50w Syringe) 50 ml Q15M PRN IV DECREASED GLUCOSE; Start 10/07/17 at 13:00 Glucagon (Glucagen) 1 mg Q15M PRN IM DECREASED GLUCOSE; Start 10/07/17 at 13:00 Glucose (Glutose) 15 gm Q15M PRN BUCCAL DECREASED GLUCOSE; Start 10/07/17 at 13 :00 Acetaminophen (Tylenol Tab) 650 mg Q6H PRN PO PAIN AND OR ELEVATED TEMP Last administered on 10/11/17 04:54; Admin Dose 650 MG; Start 10/08/17 at 01:30 Acetaminophen/ Hydrocodone Bitart ([place] (5/325)) 1 tab Q6H PRN PO HEADACHE Last administered on 10/10/17 05:17; Admin Dose 1 TAB; Start 10/08/17 at 09:30 Pantoprazole (Protonix Tab) 40 mg DAILY@06 PO Last administered on 10/11/17 04:53; Admin Dose 40 MG; Start 10/09/17 at 06:00 Polyethylene Glycol (Miralax) 17 gm DAILY PRN GTB CONSTIPATION; Start 10/08/17 at 16:30 Docusate Sodium (Colace) 100 mg BID PRN PO CONSTIPATION Last administered on 17:38; Admin Dose 100 MG; Start 10/09/17 at 17:00 Hydralazine HCl (Apresoline) 25 mg TID PO Last administered on 10/11/17 13:09 ; Admin Dose 25 MG; Start 10/08/17 at 21:00 KHALIF ROBERTO Oct 11, 2017 17:36
[2017-10-11] MEDS ORDERED: CALC667C PO (17:40)
[2017-10-11] MEDS ORDERED: HYDR-3671 PO (17:40)
--- NOTE | 2017-10-11 21:51 | DS ---
Date/Time of Note Date/Time of Note DATE: 10/11/17 TIME: 21:49 Discharge Summary Admission/Discharge Info Admit Date/Time Oct 07, 2017 at 12:22 Discharge Date/Time Oct 11, 2017 at 20:30 Patient Condition: Stable Hx of Present Illness This is a 77-year-old -[place] female with PAST history of renal failure on dialysis who underwent coronary angiogram yesterday at [facility] and was discharged home.[place] Patient was seen is ER with c/o nausea , vomiting, and abdominal pain. In ER, EKG showed complete heart block and/A- V dissociation. She denies any syncope now but she has had syncope in the past. She does complain of feeling of weakness and shortness of breath. During assessment patient is resting, denies any chest pain shortness of breath , wanted to use bedside commode without any complaints, has any fever, palpitations, headache.. Patient denies any contact with sick, any recent traveling . Ascending abdominal pain diarrhea constipation .complain of nausea but is better than before. She was admitted to hospital under Dr. Jay for further evaluation and treatment. Hospital Course - S/p complete heart block most likely 2 to hyperkalemia, Dr. Sherman is following in cardiology consultation, patient is currently in sinus rhythm with first-degree AV block. Continue telemetry monitoring. - End-stage renal failure on hemodialysis, Dr. Porter is following in nephrology consultation - Essential hypertension - Transient hypoxemia secondary to pulmonary edema, Dr. Gandara is following in pulmonology consultation. - Status post recent angiogram at Dr. Berrios's office. Monitor right femoral side site. Plan of care discussed with Dr. Jay. Home Meds Active Scripts Calcium Acetate* (Calcium Acetate*) 667 Mg Capsule, 667 MG PO WITH MEALS for 30 Days, CAP Prov:KHALIF ROBERTO 10/11/17 Hydralazine Hcl* (Hydralazine Hcl*) 25 Mg Tab, 25 MG PO TID for 30 Days, TAB Prov:KHALIF ROBERTO 10/11/17 Reported Medications Atorvastatin Calcium* (Atorvastatin Calcium*) 20 Mg Tablet, 20 MG PO QHS, #30 TAB 10/07/17 Epoetin Peter (Procrit) 10,000 U/Ml Vial, 97222 U IJ WEEKLY 02/09/13 Hum Insulin Nph/Reg Insulin Hm (Humulin 70-30 Pen) 100 Units/Ml Pen, 5 SQ PM 02/09/13 Hum Insulin Nph/Reg Insulin Hm (Humulin 70-30 Pen) 100 Units/Ml Pen, 2 SQ NOON 02/09/13 Folic Acid* (Folic Acid*) 1 Mg Tablet, 1 TAB PO DAILY 11/18/12 Aspirin (Aspirin) 81 Mg Tablet, 1 TAB PO DAILY 11/18/12 Nph, Human Insulin Isophane* (Novolin N*) 100 U/Ml Vial, 10 UNITS SC PRN, 0 Refills 05/01/11 Discontinued Reported Medications Sevelamer Carbonate* (Renvela*) 800 Mg Tablet, 0.8 GM PO WITH MEALS, TAB 10/07/17 Metoclopramide* (Reglan*) 10 Mg Tablet, 10 MG PO TID 02/09/13 Labetalol Hcl* (Labetalol Hcl*) 100 Mg Tablet, 200 MG PO BID, 0 Refills 12/28/11 Olmesartan Medoxomil (Benicar) 20 Mg Tablet, 20 MG PO BID, 0 Refills 12/28/11 Amlodipine Besylate* (Amlodipine Besylate*) 10 Mg Tablet, 10 MG PO DAILY, 0 Refills 09/17/10 Follow-up Plan f/up with HD center for next HD, f/up with PMD in 2 weeks. Primary Care Provider Care Physician No Primary Pending Labs Laboratory Tests Test 10/11/17 07:59 10/11/17 12:30 10/11/17 13:00 10/11/17 16:10 Bedside Glucose 127mg/dL (70-220) 100mg/dL (70-220) Blood Gas Specimen Source Blood arterial Arterial Blood Date Drawn 10/11/2017 1:00:01 PM Arterial Blood pH (Temp corrected) 7.427 (7.350-7.450) Arterial Blood pCO2 (Temp correct) 39.3mmhg (35-45) Arterial Blood pO2 (Temp corrected) 94.1mmHG (80-90.0) Arterial Blood HCO3 25.3mmol/L (22.0-26.0) Arterial Blood Base Excess 1.0mmol/L (-3.0-3) Arterial Blood Oxygen Saturation 97.5mmHG (95.0-100.0) Phan Test ACCEPTAB Arterial Blood Gas Puncture Site Right Radial Arterial Blood Carboxyhemoglobin 1.1% (0.0-3.0) Arterial Blood Methemoglobin 0.3% (0.0-1.5) Blood Gas A-a O2 Differential 8.6mmHg (7.0-24.0) Oxyhemoglobin Percent 96.1% (93.0-99.0) Total Hemoglobin 11.5g/dl (12.0-18.0) Blood Gas Temperature 37.0C Blood Gas Modality ROOM AIR FiO2 21.0% Blood Gas Notified Whom JLD Blood Gas Notified Time 10/11/2017 1:24:28 PM White Blood Count 7.010^3/ul (4.8-10.8) Red Blood Count 3.6710^6/ul (4.20-5.40) Hemoglobin 10.1g/dl (12.0-16.0) Hematocrit 31.4% (37.0-47.0) Mean Corpuscular Volume 85.6fl (82.0-101.0) Mean Corpuscular Hemoglobin 27.5pg (29.0-33.0) Mean Corpuscular Hemoglobin Concent 32.2g/dl (32.0-37.0) Red Cell Distribution Width 14.7% (11.5-14.5) Platelet Count 20624^3/UL (140-415) Mean Platelet Volume 9.8fl (7.4-10.4) Neutrophils % 64.7% (39.0-77.0) Lymphocytes % 16.8% (15.0-51.0) Monocytes % 12.2% (0.0-11.0) Eosinophils % 5.3% (0.0-7.0) Basophils % 0.6% (0.0-2.0) Nucleated Red Blood Cells % 0.0/100WBC (0.0-0.0) Neutrophils # 4.510^3/ul (1.6-7.5) Lymphocytes # 1.210^3/ul (0.8-2.9) Monocytes # 0.910^3/ul (0.3-0.9) Eosinophils # 0.410^3/ul (0.0-0.5) Basophils # 0.010^3/ul (0.0-0.1) Nucleated Red Blood Cells # 0.010^3/ul (0.0-0.0) Sodium Level 137mmol/L (135-144) Potassium Level 4.1mmol/L (3.5-5.1) Chloride Level 95mmol/L (97-110) Carbon Dioxide Level 29mmol/L (21-31) Anion Gap 17 (8-16) Blood Urea Nitrogen 48mg/dl (7-20) Creatinine 8.41mg/dl (0.44-1.00) Glucose Level 124mg/dl (70-220) Calcium Level 9.3mg/dl (8.4-10.2) Total Bilirubin 0.0mg/dl (0.2-1.3) Direct Bilirubin 0.00mg/dl (0.00-0.20) Indirect Bilirubin 0.0mg/dl (0-1.1) Aspartate Amino Transf (AST/SGOT) 33IU/L (15-46) Alanine Aminotransferase (ALT/SGPT) 24IU/L (13-69) Alkaline Phosphatase 128IU/L (42-121) Total Protein 8.4g/dl (6.1-8.1) Albumin 3.9g/dl (3.3-4.9) Globulin 4.50g/dl (1.3-3.2) Albumin/Globulin Ratio 0.86 KHALIF ROBERTO Oct 11, 2017 21:51
== END 2017-10-11 20:30 | disposition home health service (06) | DRG 308 ==
LOC: E/R 08:48 → ICU 12:22 → TEL 10-08 11:51
PROVIDERS: ADMIT Internal Medicine; ATTEND Internal Medicine
PROC: 5A1D70Z Performance of Urinary Filtration, Intermittent, Less than 6 Hours Per Day (ICD-10-PCS; principal; 2017-10-07)
DX: I44.2 Atrioventricular block, complete (principal); J81.0 Acute pulmonary edema; N18.6 End stage renal disease; I12.0 Hypertensive chronic kidney disease with stage 5 chronic kidney disease or end stage renal disease; E11.22 Type 2 diabetes mellitus with diabetic chronic kidney disease; E87.5 Hyperkalemia; Z99.2 Dependence on renal dialysis; I25.10 Atherosclerotic heart disease of native coronary artery without angina pectoris; E78.5 Hyperlipidemia, unspecified
CPT/HCPCS: 36600; 71010; 80048; 80053; 80061; 80162; 82803; 82962; 83036; 83735; 84100; 84443; 84484; 85025; 87081; 90935; 93005; 93306; 94664; 96374; 97110; 97116; 97162; 97530; C9113; J1815; J1885; J2270; J2405; J7042